=== PATIENT | female | born 1945 | race Caucasian/White ===

== ENCOUNTER 2021-01-30 09:57 | Inpatient (IN) | payer MEDICARE, BC, SELFPAY ==
[2021-01-30] VITALS (18 sets, daily range): BP systolic 95–144; BP diastolic 41–86; PULSE 53–70; RESP 14–27; TEMP 35.8–37.1; O2SAT 7–100; BMI 44.4
--- NOTE | ~2021-01-30 | XR_ITS ---
EXAMINATION: XR CHEST CLINICAL INFORMATION: Shortness of breath COMPARISON: None TECHNIQUE: Portable upright AP x2 views of the chest was obtained. FINDINGS: Patient is slightly rotated to the right. Face and chin overlie and partly obscured superior chest. There are low lung volumes. There is mild enlargement cardiopericardial silhouette with fullness of the central vasculature. Bibasilar effusions are present, greater on right with fluid tracking in the right minor fissure. There is passive atelectasis adjacent to the effusion. No definite superimposed lobar or segmental airspace consolidation. XR/XR chest 1V IMPRESSION: Low lung volumes. Mild pulmonary vascular congestion with bilateral effusions, greater on right. Bibasilar passive atelectasis adjacent to effusions.
--- NOTE | ~2021-01-30 | XR_ITS ---
EXAMINATION: XR CHEST CLINICAL INFORMATION: Status post intubation COMPARISON: 01/30/2021 TECHNIQUE: Frontal view of the chest was obtained. FINDINGS: An endotracheal tube is been placed which projects 1 cm above the haroon. A nasogastric tube is coiled in the stomach. There are bilateral pleural effusions, larger on the right with atelectasis in the lower lungs. Mild vascular congestion cannot be excluded. XR/XR chest 1V IMPRESSION: Bilateral effusions with basilar atelectasis and probable congestive heart failure. Status post endotracheal and patient with the endotracheal tube projected 1 cm above the haroon. A nasogastric tube has also been placed.
--- NOTE | 2021-01-30 10:11 | ECG_ITS ---
Test Reason : CHF Blood Pressure : / mmHG Vent. Rate : 052 BPM Atrial Rate : 052 BPM P-R Int : 144 ms QRS Dur : 086 ms QT Int : 434 ms P-R-T Axes : 024 023 021 degrees QTc Int : 403 ms Poor data quality, interpretation may be adversely affected Sinus bradycardia Possible Anterior infarct , age undetermined Abnormal ECG No previous ECGs available Referred By: Roverto Hood Electronically Signed By:BRIDGETT AGUIAR
--- NOTE | 2021-01-30 10:17 | ED_ITS ---
HPI - SOB/Dyspnea General Chief Complaint: Dyspnea Stated Complaint: AMS, LOW O2SAT 78%, ON CPAP Time Seen by Provider: 01/30/21 10:10 Source: EMS Mode of arrival: EMS Limitations: other (Respiratory distress ) History of Present Illness HPI Narrative: This is a 75 year old obese female with past medical history of CHF was brought in by EMS from home for shortness of breath. EMS states that per the son, she was tossing and turning all night and hallucinating talking about puppies having babies, which is not her baseline. He also noted she was having trouble breathing for the past day and her legs seemed to be more swollen than usual. According to what the son of this patient told EMS this patient is usuall y alert and oriented X3, and this is not her baseline. She is fully vaccinated, and per the son she has not been around any sick individuals lately. Per EMS the patient was able to answer a few questions including her name and adress upon arrival, but she quickly became lethargic and unable to answer any questions en route to the hospital patient was saturating 70% on 4 L at home. She uses 3L of oxygen via nasal canula at home. 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 MD elicited complaint: shortness of breath Pertinent past history: congestive heart failure Onset (ago): day(s) (1 day progressivly worsening ) Timing: progressively worsening Severity: severe Exacerbating factors: exertion Relieving factors: nothing Known history of: congestive heart failure Associated symptoms: wheezing and chest congestion Treatment prior to arrival: none Related Data Home oxygen amount: 4 liters Allergies Allergy/AdvReac Type Severity Reaction Status Date / Time Sulfa (Sulfonamide Allergy Unknown Verified 03/23/14 00:00 Antibiotics) Novacaine Allergy Unknown Uncoded 03/23/14 00:00 Review of Systems Constitutional: Constitutional: Reports fatigue, Reports lethargy and Reports weakness ENT: Reports system reviewed and no additional complaints, except as documented Cardiovascular: Cardiovascular: Reports dyspnea Respiratory: Respiratory: Reports chest congestion, Reports dyspnea and Reports wheezing Integumentary/Breasts: Skin/Breast: Reports swelling (bilateral lower extremities ) and Reports wounds Neurologic: Reports weakness and Reports other (lethargy ) Endocrine: Endocrine: Reports fatigue Allergic/Immunologic: Allergic/Immunologic: Reports wheezing [facility] Past Medical History Medical History (Updated 01/30/21 @ 12:44 by Roverto Hood MD) CHF (congestive heart failure) HTN (hypertension) Neuropathy Social History Social History Alcohol intake: never Patient Tobacco Use Status: Former Tobacco user Use of substances other than those prescribed or required for medical reasons: No Advance Directives: No Advance Directives Information Provided: No Physical Exam Vital Signs: Vital Signs: Last Vital Signs Temp 96.4 F L 01/30/21 10:11 Pulse 55 01/30/21 11:16 Resp 27 H 01/30/21 14:29 BP 143/63 H 01/30/21 11:16 Pulse Ox 91 L 01/30/21 11:16 Body Mass Index 44.4 Const: General: acute distress, ill appearing, lethargic and tired appearing Orientation/consciousness: lethargic Limitations: other limitations (respiratory distress ) HENMT: Head: Yes normal to inspection Chest: Chest palpation & inspection: normal inspection of the chest and normal palpation of entire chest wall Resp: Effort & Inspection: audible wheezes and respiratory distress Auscultation: crackles, wheezes and diminished lung sounds Cardio: Rate: regular rate Rhythm: regular rhythm GI: Inspection: Yes normal to inspection Palpation (GI): Soft to palpation Auscultation: normal bowel sounds Skin: Rashes: rashes noted (bilateral lower extremities bilateral 4+ pitting edema) Extrem: General: Yes edema (4+ to bilateral lower extremities with weeping ) MDM - SOB/Dyspnea MDM Narrative Medical decision making narrative: Patient morbidly obese with CHF on home oxygen came for increased shortness of breath desaturated to 70% on 4 L venous gas shows respiratory acidosis with metabolic alkalosis patient was on BiPAP will admit patient to ICU pt seen by Dr. farah Lab Data Attestation: I reviewed the patient's lab results. Result diagrams: 01/30/21 10:31 01/30/21 10:31 Labs: Lab Results 01/30/21 01/30/21 01/30/21 Range/Units 10:29 10:30 10:31 WBC 10.9 H (4.8-10.8) X10*3/uL RBC 3.73 L (4.20-5.50) X10*6/uL Hgb 9.8 L (12.0-16.0) g/dl Hct 35.3 L (37-47) % MCV 94.6 (80-98) fL MCH 26.3 L (27.0-33.0) pg MCHC 27.8 L (31.0-35.0) g/dl RDW 15.5 (11.0-16.0) % Plt Count 284 (160-400) X10*3/uL MPV 11.4 (9.4-12.3) fL Immature Gran % (Auto) 1.2 H (0.0-0.4) % Neut % (Auto) 82.8 H (45-73) % Lymph % (Auto) 10.2 L (20-40) % [place] % (Auto) 5.1 (2-11) % Eos % (Auto) 0.3 (0-4) % Baso % (Auto) 0.4 (0-2) % Lymph # (Auto) 1.1 L (1.2-4.9) X10*3/uL [place] # (Auto) 0.6 (0.1-1.2) X10*3/uL Eos # (Auto) 0.0 (0.0-0.4) X10*3/uL Baso # (Auto) 0.0 (0.0-0.2) X10*3/uL Abs Immat Gran (auto) 0.13 H (0.00-0.03) X10*3/uL Absolute Neuts (auto) 9.0 H (2.0-8.3) X10*3/uL Absolute Nucleated RBC 0.020 H (0.0-0.012) X10*3/uL Nucleated RBC % (auto) 0.2 (0.0-0.2) /100WBC PT (9.9-13.0) SEC INR (0.9-1.1) APTT (24.1-38.0) SEC VBG pH TNP VBG pCO2 TNP VBG pO2 TNP VBG HCO3 TNP VBG O2 Saturation TNP VBG Base Excess TNP Sodium (135-145) mmol/L Potassium (3.3-5.1) mmol/L Chloride (96-108) mmol/L Carbon Dioxide (22-29) mmol/L Anion Gap (12-20) BUN (9-16) mg/dL Creatinine (0.5-1.4) mg/dL Estim Creat Clear Calc Estimated GFR Random Glucose (60-115) mg/dL Lactic Acid (0.5-2.0) mmol/L Calcium (8.4-10.2) mg/dL Magnesium (1.6-2.6) mg/dL Total Bilirubin (0.0-1.0) mg/dL Direct Bilirubin (0.0-0.5) mg/dL AST (5-31) U/L ALT (0-31) U/L Alkaline Phosphatase (39-117) U/L Troponin I High Sens 15.2 (<3.5-17.0) ng/L B-Natriuretic Peptide 415 H (<100) pg/mL Total Protein (6.5-8.0) g/dL Albumin (3.5-5.0) g/dL Urine Color Urine Appearance Urine pH (5.0-8.0) Ur Specific [place] (1.005-1.025) Urine Protein (NEG-TRACE) MG/DL Urine Glucose (UA) (NEG) MG/DL Urine Ketones (NEG) MG/DL Urine Blood (NEG) Urine Nitrite (NEG) Ur Leukocyte Esterase (NEG) Urine RBC (0) /HPF Urine WBC (0-4) /HPF Ur Squamous Epith Cells /LPF Urine Bacteria /LPF Hyaline Casts /LPF COVID-19 (ABDIRAHMAN) (Negative) COVID-19 Clin Com 01/30/21 01/30/21 01/30/21 Range/Units 10:31 10:31 10:31 WBC (4.8-10.8) X10*3/uL RBC (4.20-5.50) X10*6/uL Hgb (12.0-16.0) g/dl Hct (37-47) % MCV (80-98) fL MCH (27.0-33.0) pg MCHC (31.0-35.0) g/dl RDW (11.0-16.0) % Plt Count (160-400) X10*3/uL MPV (9.4-12.3) fL Immature Gran % (Auto) (0.0-0.4) % Neut % (Auto) (45-73) % Lymph % (Auto) (20-40) % [place] % (Auto) (2-11) % Eos % (Auto) (0-4) % Baso % (Auto) (0-2) % Lymph # (Auto) (1.2-4.9) X10*3/uL [place] # (Auto) (0.1-1.2) X10*3/uL Eos # (Auto) (0.0-0.4) X10*3/uL Baso # (Auto) (0.0-0.2) X10*3/uL Abs Immat Gran (auto) (0.00-0.03) X10*3/uL Absolute Neuts (auto) (2.0-8.3) X10*3/uL Absolute Nucleated RBC (0.0-0.012) X10*3/uL Nucleated RBC % (auto) (0.0-0.2) /100WBC PT 11.1 (9.9-13.0) SEC INR 1.0 (0.9-1.1) APTT 31.0 (24.1-38.0) SEC VBG pH VBG pCO2 VBG pO2 VBG HCO3 VBG O2 Saturation VBG Base Excess Sodium 144 (135-145) mmol/L Potassium 5.1 (3.3-5.1) mmol/L Chloride 90 L (96-108) mmol/L Carbon Dioxide 47 H* (22-29) mmol/L Anion Gap 12 (12-20) BUN 18 H (9-16) mg/dL Creatinine 0.95 (0.5-1.4) mg/dL Estim Creat Clear Calc 57.0 Estimated GFR 58 Random Glucose 129 H (60-115) mg/dL Lactic Acid 0.6 (0.5-2.0) mmol/L Calcium 9.1 (8.4-10.2) mg/dL Magnesium 2.1 (1.6-2.6) mg/dL Total Bilirubin 0.4 (0.0-1.0) mg/dL Direct Bilirubin < 0.2 (0.0-0.5) mg/dL AST 16 (5-31) U/L ALT 11 (0-31) U/L Alkaline Phosphatase 116 (39-117) U/L Troponin I High Sens (<3.5-17.0) ng/L B-Natriuretic Peptide (<100) pg/mL Total Protein 7.1 (6.5-8.0) g/dL Albumin 3.9 (3.5-5.0) g/dL Urine Color Urine Appearance Urine pH (5.0-8.0) Ur Specific [place] (1.005-1.025) Urine Protein (NEG-TRACE) MG/DL Urine Glucose (UA) (NEG) MG/DL Urine Ketones (NEG) MG/DL Urine Blood (NEG) Urine Nitrite (NEG) Ur Leukocyte Esterase (NEG) Urine RBC (0) /HPF Urine WBC (0-4) /HPF Ur Squamous Epith Cells /LPF Urine Bacteria /LPF Hyaline Casts /LPF COVID-19 (ABDIRAHMAN) (Negative) COVID-19 Clin Com 01/30/21 01/30/21 01/30/21 Range/Units 10:31 10:38 11:14 WBC (4.8-10.8) X10*3/uL RBC (4.20-5.50) X10*6/uL Hgb (12.0-16.0) g/dl Hct (37-47) % MCV (80-98) fL MCH (27.0-33.0) pg MCHC (31.0-35.0) g/dl RDW (11.0-16.0) % Plt Count (160-400) X10*3/uL MPV (9.4-12.3) fL Immature Gran % (Auto) (0.0-0.4) % Neut % (Auto) (45-73) % Lymph % (Auto) (20-40) % [place] % (Auto) (2-11) % Eos % (Auto) (0-4) % Baso % (Auto) (0-2) % Lymph # (Auto) (1.2-4.9) X10*3/uL [place] # (Auto) (0.1-1.2) X10*3/uL Eos # (Auto) (0.0-0.4) X10*3/uL Baso # (Auto) (0.0-0.2) X10*3/uL Abs Immat Gran (auto) (0.00-0.03) X10*3/uL Absolute Neuts (auto) (2.0-8.3) X10*3/uL Absolute Nucleated RBC (0.0-0.012) X10*3/uL Nucleated RBC % (auto) (0.0-0.2) /100WBC PT (9.9-13.0) SEC INR (0.9-1.1) APTT (24.1-38.0) SEC VBG pH 7.29 L VBG pCO2 95 VBG pO2 42 VBG HCO3 46 H VBG O2 Saturation 59.0 VBG Base Excess 15.2 Sodium (135-145) mmol/L Potassium (3.3-5.1) mmol/L Chloride (96-108) mmol/L Carbon Dioxide (22-29) mmol/L Anion Gap (12-20) BUN (9-16) mg/dL Creatinine (0.5-1.4) mg/dL Estim Creat Clear Calc Estimated GFR Random Glucose (60-115) mg/dL Lactic Acid (0.5-2.0) mmol/L Calcium (8.4-10.2) mg/dL Magnesium (1.6-2.6) mg/dL Total Bilirubin (0.0-1.0) mg/dL Direct Bilirubin (0.0-0.5) mg/dL AST (5-31) U/L ALT (0-31) U/L Alkaline Phosphatase (39-117) U/L Troponin I High Sens (<3.5-17.0) ng/L B-Natriuretic Peptide (<100) pg/mL Total Protein (6.5-8.0) g/dL Albumin (3.5-5.0) g/dL Urine Color YELLOW Urine Appearance HAZY Urine pH 5.5 (5.0-8.0) Ur Specific [place] >= 1.030 H (1.005-1.025) Urine Protein 1+ H (NEG-TRACE) MG/DL Urine Glucose (UA) NEG (NEG) MG/DL Urine Ketones NEG (NEG) MG/DL Urine Blood NEG (NEG) Urine Nitrite NEG (NEG) Ur Leukocyte Esterase NEG (NEG) Urine RBC 0-2 (0) /HPF Urine WBC 0-2 (0-4) /HPF Ur Squamous Epith Cells 1+ /LPF Urine Bacteria TRACE /LPF Hyaline Casts 0-2 /LPF COVID-19 (ABDIRAHMAN) Negative (Negative) COVID-19 Clin Com See Note ECG Data Attestation: I personally reviewed and interpreted this ECG as follows: Interpretation: Sinus bradycardia with heart rate 52 beats per minute poor progression of R-waves no acute ST T wave changes no acute ischemia Discharge Plan Discharge Clinical Impression: Respiratory acidosis, Hypoxia Congestive heart failure Qualifiers: Heart failure type: combined systolic and diastolic Heart failure chronicity: acute on chronic Qualified Code(s): I50.43 - Acute on chronic combined systolic (congestive) and diastolic (congestive) heart failure Patient Disposition: Admitted As Inpatient
[2021-01-30 10:41] LABS: Venous Blood Gas Refer to POC result
[2021-01-30 10:41] LABS: MANUAL DIFF FLAG NO
[2021-01-30 10:43] LABS: VBG Base Excess 15.2 mmol/L; VBG HCO3 46 mmol/L (22-26); VBG pCO2 95 mmHg; VBG pH 7.29 (7.32-7.43); VBG pO2 42 mmHg
[2021-01-30 10:50] LABS: Lactic Acid 0.6 mmol/L (0.5-2.0)
[2021-01-30 10:51] LABS: Basophils Percent Auto 0.4 % (0-2); Eosinophils Percent Auto 0.3 % (0-4); Hematocrit 35.3 % (37-47); Hemoglobin 9.8 g/dl (12.0-16.0); Imm Gran Abs Auto 0.13 X10*3/uL (0.00-0.03); Imm Gran Pct Auto 1.2 % (0.0-0.4); Lymphocytes Absolute Auto 1.1 X10*3/uL (1.2-4.9); Lymphocytes Percent Auto 10.2 % (20-40); Mean Corpuscular HGB Conc 27.8 g/dl (31.0-35.0); Mean Corpuscular Hemoglobin 26.3 pg (27.0-33.0); Mean Corpuscular Volume 94.6 fL (80-98); Mean Platelet Volume 11.4 fL (9.4-12.3); Monocytes Absolute Auto 0.6 X10*3/uL (0.1-1.2); Monocytes Percent Auto 5.1 % (2-11); NRBC Pct Auto 0.2 /100WBC (0.0-0.2); Neutrophils Percent Auto 82.8 % (45-73); Platelet Count 284 X10*3/uL (160-400); Red Blood Count 3.73 X10*6/uL (4.20-5.50); Red Cell Distribution Width 15.5 % (11.0-16.0); White Blood Count 10.9 X10*3/uL (4.8-10.8)
[2021-01-30 10:57] LABS: Prothrombin Time 11.1 SEC (9.9-13.0)
[2021-01-30 11:10] LABS: B Type Natriuretic Peptide 415 pg/mL (<100); Troponin-I High Sensitivity 15.2 ng/L (<3.5-17.0)
[2021-01-30 11:13] LABS: Alanine Aminotransferase 11 U/L (0-31); Albumin Level 3.9 g/dL (3.5-5.0); Alkaline Phosphatase 116 U/L (39-117); Anion Gap 12 (12-20); Aspartate Amino Transferase 16 U/L (5-31); Bilirubin Direct < 0.2 mg/dL (0.0-0.5); Bilirubin Total 0.4 mg/dL (0.0-1.0); Blood Urea Nitrogen 18 mg/dL (9-16); Calcium 9.1 mg/dL (8.4-10.2); Carbon Dioxide 47 mmol/L (22-29); Chloride 90 mmol/L (96-108); Estimated Glomerular Filt Rate 58; Glucose Random 129 mg/dL (60-115); Magnesium 2.1 mg/dL (1.6-2.6); Potassium 5.1 mmol/L (3.3-5.1); Sodium 144 mmol/L (135-145); Total Protein 7.1 g/dL (6.5-8.0)
[2021-01-30 11:14] LABS: COVID-19 Test Negative (Negative); IDNOW Serial# 9DD0AD1C
[2021-01-30] MEDS: Furosemide 40 MG/4 ML VIAL IVPUSH (11:16)
[2021-01-30 11:26] LABS: Appearance Urine HAZY; Color Urine YELLOW; Glucose Urine UA NEG (NEG); Leukocyte Esterase Urine NEG (NEG); Nitrite Urine NEG (NEG); PH 5.5 (5.0-8.0); Specific Gravity - Urine >= 1.030 (1.005-1.025); UACC Culture Trigger NO; Urine Blood NEG (NEG); Urine Ketones NEG (NEG); Urine Protein 1+ MG/DL (NEG-TRACE)
[2021-01-30 11:41] LABS: RBC Urine 0-2 /HPF (0); WBC Urine 0-2 /HPF (0-4)
[2021-01-30 11:42] LABS: Bacteria Urine TRACE /LPF; Hyaline Casts Urine 0-2 /LPF; Squamous Epithelial Cell Urine 1+ /LPF
[2021-01-30] MEDS: Heparin Sodium,Porcine 5,000 UNIT/ML VIAL 5000 UNIT SUBCUT ×2 (13:12→21:28)
[2021-01-30] MEDS: acetaZOLAMIDE sodium 500 MG VIAL IVPUSH ×2 (13:43→21:28)
[2021-01-30 16:35] LABS: ABG Base Excess 31.8 mmol/L; ABG HCO3 64 mmol/L (22-26); ABG pH 7.33 (7.35-7.45); ABG pO2 96 mmHg (83-108)
[2021-01-30] MEDS: propofoL 200 MG/20 ML VIAL 100 MG IVPUSH (16:47)
--- NOTE | 2021-01-30 16:51 | PM.CCHP ---
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 On ER evaluation patient was noted to be in acute hypoxic and hypercapnic respiratory failure, likely secondary to underlying congestive heart failure and obesity hyperventilation syndrome. She was started on diuresis and BiPAP and admitted to intensive care unit. Patient's hypercapnia progressed despite BiPAP support in she required emergent intubation and ventilatory support. Review of Systems Review of Systems: Yes Unobtainable due to mental condition and Unobtainable due to mental status [facility] Past Medical History Medical History (Updated 01/31/21 @ 12:03 by Niranjan Gerber MD) CHF (congestive heart failure) HTN (hypertension) Neuropathy Social History Social History Household Members: Unknown / Unable to assess Housing: Apartment Unable to assess alcohol history related to: Unable to respond and Unknown Alcohol intake: never Patient Tobacco Use Status: Former Tobacco user service: No Current occupational status: retired [employer] Allergies Allergy/AdvReac Type Severity Reaction Status Date / Time Sulfa (Sulfonamide Allergy Unknown Verified 03/23/14 00:00 Antibiotics) Novacaine Allergy Unknown Uncoded 03/23/14 00:00 Active Medications: Current Medications Generic Name Dose Route Start Last Admin Trade Name Freq PRN Reason Stop Dose Admin Acetazolamide 500 mg 01/30/21 12:40 01/30/21 13:43 Acetazolamide Sodium 500 Mg Vial IVPUSH 500 mg BID JULIETH Administration Heparin Sodium (Porcine) 5,000 unit 01/30/21 12:45 01/30/21 13:12 Heparin Sodium,Porcine 5,000 Unit/Ml Vial SUBCUT 5,000 unit Q8H JULIETH Administration Ondansetron HCl 4 mg 01/30/21 12:38 Ondansetron Hcl 4 Mg/2 Ml Vial IVPUSH Q8H PRN Nausea Physical Exam Vital Signs: Vital Signs: Last Vital Signs Temp 97.2 F 01/30/21 16:00 Pulse 60 01/30/21 16:00 Resp 26 H 01/30/21 16:25 BP 135/43 L 01/30/21 16:00 Pulse Ox 92 01/30/21 16:00 Body Mass Index 44.4 Const: General: no acute distress and other (Sedated on the vent) Nutritional Appearance: obese Eyes: Sclerae: sclerae normal EOM: EOMs intact bilaterally Neck: Neck: Yes no lymphadenopathy, Yes trachea midline and Yes supple Resp: Effort & Inspection: normal respiratory effort and no respiratory distress Auscultation: clear to auscultation bilaterally Cardio: Rate: regular rate Rhythm: regular rhythm Heart sounds: no gallops, no murmurs and no rubs GI: Palpation (GI): Soft to palpation and Other GI palpation findings present ( Nontender) Auscultation: normal bowel sounds Extrem: General: No clubbing, No cyanosis and Yes pedal edema (3+ bilateral) Results Labs CBC and Chem 7: 01/31/21 05:46 01/31/21 05:46 Labs: Laboratory Results - last 24 hr 01/30/21 01/30/21 01/30/21 10:29 10:30 10:31 MCV 94.6 MCH 26.3 L MCHC 27.8 L RDW 15.5 Plt Count 284 MPV 11.4 Immature Gran % (Auto) 1.2 H Neut % (Auto) 82.8 H Lymph % (Auto) 10.2 L [place] % (Auto) 5.1 Eos % (Auto) 0.3 Baso % (Auto) 0.4 Lymph # (Auto) 1.1 L [place] # (Auto) 0.6 Eos # (Auto) 0.0 Baso # (Auto) 0.0 Abs Immat Gran (auto) 0.13 H Absolute Neuts (auto) 9.0 H Absolute Nucleated RBC 0.020 H Nucleated RBC % (auto) 0.2 PT INR APTT O2 Saturation ABG pH at Pt Temp ABG pCO2 at Pt Temp ABG pO2 at Pt Temp ABG HCO3 ABG Base Excess (Actual) VBG pH TNP VBG pCO2 TNP VBG pO2 TNP VBG HCO3 TNP VBG O2 Saturation TNP VBG Base Excess TNP Anion Gap Estim Creat Clear Calc Estimated GFR Random Glucose Lactic Acid Calcium Magnesium Total Bilirubin Direct Bilirubin AST ALT Alkaline Phosphatase Troponin I High Sens 15.2 B-Natriuretic Peptide 415 H Total Protein Albumin Urine Color Urine Appearance Urine pH Ur Specific [place] Urine Protein Urine Glucose (UA) Urine Ketones Urine Blood Urine Nitrite Ur Leukocyte Esterase Urine RBC Urine WBC Ur Squamous Epith Cells Urine Bacteria Hyaline Casts COVID-19 (ABDIRAHMAN) COVID-19 Clin Com 01/30/21 01/30/21 01/30/21 10:31 10:31 10:31 MCV MCH MCHC RDW Plt Count MPV Immature Gran % (Auto) Neut % (Auto) Lymph % (Auto) [place] % (Auto) Eos % (Auto) Baso % (Auto) Lymph # (Auto) [place] # (Auto) Eos # (Auto) Baso # (Auto) Abs Immat Gran (auto) Absolute Neuts (auto) Absolute Nucleated RBC Nucleated RBC % (auto) PT 11.1 INR 1.0 APTT 31.0 O2 Saturation ABG pH at Pt Temp ABG pCO2 at Pt Temp ABG pO2 at Pt Temp ABG HCO3 ABG Base Excess (Actual) VBG pH VBG pCO2 VBG pO2 VBG HCO3 VBG O2 Saturation VBG Base Excess Anion Gap 12 Estim Creat Clear Calc 57.0 Estimated GFR 58 Random Glucose 129 H Lactic Acid 0.6 Calcium 9.1 Magnesium 2.1 Total Bilirubin 0.4 Direct Bilirubin < 0.2 AST 16 ALT 11 Alkaline Phosphatase 116 Troponin I High Sens B-Natriuretic Peptide Total Protein 7.1 Albumin 3.9 Urine Color Urine Appearance Urine pH Ur Specific [place] Urine Protein Urine Glucose (UA) Urine Ketones Urine Blood Urine Nitrite Ur Leukocyte Esterase Urine RBC Urine WBC Ur Squamous Epith Cells Urine Bacteria Hyaline Casts COVID-19 (ABDIRAHMAN) COVID-19 Clin Com 01/30/21 01/30/21 01/30/21 10:31 10:38 11:14 MCV MCH MCHC RDW Plt Count MPV Immature Gran % (Auto) Neut % (Auto) Lymph % (Auto) [place] % (Auto) Eos % (Auto) Baso % (Auto) Lymph # (Auto) [place] # (Auto) Eos # (Auto) Baso # (Auto) Abs Immat Gran (auto) Absolute Neuts (auto) Absolute Nucleated RBC Nucleated RBC % (auto) PT INR APTT O2 Saturation ABG pH at Pt Temp ABG pCO2 at Pt Temp ABG pO2 at Pt Temp ABG HCO3 ABG Base Excess (Actual) VBG pH 7.29 L VBG pCO2 95 VBG pO2 42 VBG HCO3 46 H VBG O2 Saturation 59.0 VBG Base Excess 15.2 Anion Gap Estim Creat Clear Calc Estimated GFR Random Glucose Lactic Acid Calcium Magnesium Total Bilirubin Direct Bilirubin AST ALT Alkaline Phosphatase Troponin I High Sens B-Natriuretic Peptide Total Protein Albumin Urine Color YELLOW Urine Appearance HAZY Urine pH 5.5 Ur Specific [place] >= 1.030 H Urine Protein 1+ H Urine Glucose (UA) NEG Urine Ketones NEG Urine Blood NEG Urine Nitrite NEG Ur Leukocyte Esterase NEG Urine RBC 0-2 Urine WBC 0-2 Ur Squamous Epith Cells 1+ Urine Bacteria TRACE Hyaline Casts 0-2 COVID-19 (ABDIRAHMAN) Negative COVID-19 Clin Com See Note 01/30/21 16:29 MCV MCH MCHC RDW Plt Count MPV Immature Gran % (Auto) Neut % (Auto) Lymph % (Auto) [place] % (Auto) Eos % (Auto) Baso % (Auto) Lymph # (Auto) [place] # (Auto) Eos # (Auto) Baso # (Auto) Abs Immat Gran (auto) Absolute Neuts (auto) Absolute Nucleated RBC Nucleated RBC % (auto) PT INR APTT O2 Saturation 98.0 ABG pH at Pt Temp 7.33 L ABG pCO2 at Pt Temp 121 H* ABG pO2 at Pt Temp 96 ABG HCO3 64 H ABG Base Excess (Actual) 31.8 VBG pH VBG pCO2 VBG pO2 VBG HCO3 VBG O2 Saturation VBG Base Excess Anion Gap Estim Creat Clear Calc Estimated GFR Random Glucose Lactic Acid Calcium Magnesium Total Bilirubin Direct Bilirubin AST ALT Alkaline Phosphatase Troponin I High Sens B-Natriuretic Peptide Total Protein Albumin Urine Color Urine Appearance Urine pH Ur Specific [place] Urine Protein Urine Glucose (UA) Urine Ketones Urine Blood Urine Nitrite Ur Leukocyte Esterase Urine RBC Urine WBC Ur Squamous Epith Cells Urine Bacteria Hyaline Casts COVID-19 (ABDIRAHMAN) COVID-19 Clin Com Imaging Radiologist's Impressions: Impressions Chest X-Ray 01/30/21 10:11 IMPRESSION: Low lung volumes. Mild pulmonary vascular congestion with bilateral effusions, greater on right. Bibasilar passive atelectasis adjacent to effusions. Assessment and Plan (1) Acute on chronic respiratory failure with hypoxia and hypercapnia: Status: Acute Assessment: 75-year-old lady with underlying morbid obesity and bilateral diaphragmatic paralysis admitted with acute on chronic hypoxic and hypercapnic respiratory failure requiring ventilatory support. Plan: Neuro: Initial visual hallucination likely secondary to CO2 narcosis. Cardiac: Likely exacerbation of underlying chronic congestive heart failure. 2D echocardiogram is pending. Continue with diuresis. Pulmonary: Acute on chronic hypoxic and hypercapnic respiratory failure, likely secondary to exacerbation of underlying chronic congestive heart failure. Now requiring ventilatory support. Underlying history of bilateral diaphragmatic paralysis and supplemental oxygen dependency after cervical surgery. Likely underlying undiagnosed obesity hyperventilation syndrome. Continue to titrate of ventilatory support as tolerated. Renal: No acute issues. Endo: No acute issues. GI: No acute issues. ID: No acute issues Heme/Onc: No acute issues. Psych: No acute issues. Miscellaneous: No acute issues. Prophylaxis: Heparin, ppi Diet: Tube feeds Critical care time spent: 60 minutes excluding separately billable procedures (2) Obesity hypoventilation syndrome: Status: Acute (3) Congestive heart failure: Qualifiers: Heart failure chronicity: acute on chronic Heart failure type: combined systolic and diastolic Qualified Code(s): I50.43 - Acute on chronic combined systolic (congestive) and diastolic (congestive) heart failure Status: Acute Assessment: Plan: Neuro: No acute issues. Cardiac: No acute issues. Pulmonary: No acute issues. Renal: No acute issues. Endo: No acute issues. GI: No acute issues. ID: No acute issues Heme/Onc: No acute issues. Psych: No acute issues. Miscellaneous: No acute issues. Prophylaxis: Diet: Critical care time spent:
--- NOTE | 2021-01-30 16:51 | W.PM.CCHP ---
Procedures Date of Service Date of Service: 01/30/21 Intubation Intubation Comments: Patient emergently intubated for worsening hypercapnic and hypoxic respiratory failure refractory to BiPAP support with 7.5 cuffed ET tube under glide scope guidance with no immediate complications. X-ray for ET tube position is pending. Consent for Procedure: Emergent-no informed consent obtained Sedative: propofol Mg given: 100 ET tube size: 7.5 Tube placement confirmation: visualized tube passing through cords, equal breath sounds bilaterally and confirmation by capnometry Patient tolerated procedure: well
[2021-01-30] MEDS: propofoL 1,000 MG/100 ML VIAL 18.57 MG IVCONT ×2 (17:00→22:45)
[2021-01-30] MEDS: fentaNYL citrate/NS 1,000 MCG/100 ML PLAST..BAG 7.5 MCG IVCONT (17:12)
[2021-01-30] MEDS: Furosemide 200 MG in 0.9 % Sodium Chloride 80 ML IVCONT (17:22)
[2021-01-30 17:28] LABS: ABG Base Excess 26.1 mmol/L; ABG HCO3 56 mmol/L (22-26); ABG pCO2 96 mmHg (32-45); ABG pCO2 TC 93 mmHg (32-45); ABG pH 7.37 (7.35-7.45); ABG pH TC 7.38 (7.35-7.45); ABG pO2 81 mmHg (83-108); ABG pO2 TC 77 (83-108)
[2021-01-30 19:32] LABS: ABG Refer to POC result
[2021-01-30 19:39] LABS: ABG Refer to POC result
[2021-01-30 19:42] LABS: ABG pCO2 121 mmHg (32-45)
[2021-01-30] MEDS: propofoL 1,000 MG/100 ML VIAL 30.94 MG IVCONT (19:43)
[2021-01-30 20:12] LABS: Anion Gap 14 (12-20); Blood Urea Nitrogen 18 mg/dL (9-16); Carbon Dioxide 45 mmol/L (22-29); Chloride 91 mmol/L (96-108); Creatinine Clr Calc Pharmacy 61.5; Estimated Glomerular Filt Rate > 60; Glucose Random 110 mg/dL (60-115); Potassium 4.9 mmol/L (3.3-5.1); Sodium 145 mmol/L (135-145)
[2021-01-30] MEDS: Chlorhexidine Gluc Oral Rinse 15 ML MOUTHWASH BUCCAL (21:28)
[2021-01-30] MEDS: fentaNYL citrate/NS 1,000 MCG/100 ML PLAST..BAG 17.5 MCG IVCONT (21:57)
[2021-01-31] VITALS (35 sets, daily range): BP systolic 89–108; BP diastolic 31–80; PULSE 51–88; RESP 14–43; TEMP 35.3–36.8; O2SAT 88–99; BMI 47.0
[2021-01-31] MEDS: propofoL 1,000 MG/100 ML VIAL 24.76 MG IVCONT ×2 (02:37→05:29)
[2021-01-31] MEDS: fentaNYL citrate/NS 1,000 MCG/100 ML PLAST..BAG 15 MCG IVCONT ×3 (02:37→23:55)
[2021-01-31] MEDS: Heparin Sodium,Porcine 5,000 UNIT/ML VIAL 5000 UNIT SUBCUT ×3 (05:27→19:54)
[2021-01-31 05:55] LABS: Venous Blood Gas Refer to POC result
[2021-01-31 05:56] LABS: VBG Base Excess 29.9 mmol/L; VBG HCO3 53 mmol/L (22-26); VBG pCO2 48 mmHg; VBG pH 7.65 (7.32-7.43); VBG pO2 137 mmHg
[2021-01-31 06:01] LABS: MANUAL DIFF FLAG NO
[2021-01-31 06:04] LABS: Basophils Percent Auto 0.2 % (0-2); Eosinophils Absolute Auto 0.1 X10*3/uL (0.0-0.4); Eosinophils Percent Auto 1.5 % (0-4); Hematocrit 29.4 % (37-47); Hemoglobin 8.4 g/dl (12.0-16.0); Imm Gran Abs Auto 0.06 X10*3/uL (0.00-0.03); Imm Gran Pct Auto 0.7 % (0.0-0.4); Lymphocytes Percent Auto 12.4 % (20-40); Mean Corpuscular HGB Conc 28.6 g/dl (31.0-35.0); Mean Corpuscular Hemoglobin 25.8 pg (27.0-33.0); Mean Corpuscular Volume 90.2 fL (80-98); Mean Platelet Volume 11.7 fL (9.4-12.3); Monocytes Absolute Auto 0.7 X10*3/uL (0.1-1.2); NRBC Pct Auto 0.4 /100WBC (0.0-0.2); Neutrophils Absolute Auto 6.2 X10*3/uL (2.0-8.3); Neutrophils Percent Auto 76.2 % (45-73); Platelet Count 219 X10*3/uL (160-400); Red Blood Count 3.26 X10*6/uL (4.20-5.50); Red Cell Distribution Width 15.8 % (11.0-16.0); White Blood Count 8.1 X10*3/uL (4.8-10.8)
[2021-01-31 06:28] LABS: Albumin Level 2.9 g/dL (3.5-5.0); Anion Gap 14 (12-20); Blood Urea Nitrogen 19 mg/dL (9-16); Calcium 8.5 mg/dL (8.4-10.2); Carbon Dioxide 39 mmol/L (22-29); Chloride 93 mmol/L (96-108); Creatinine Clr Calc Pharmacy 67.6; Estimated Glomerular Filt Rate > 60; Glucose Random 76 mg/dL (60-115); Phosphorus 2.6 mg/dL (2.7-4.5); Potassium 3.9 mmol/L (3.3-5.1); Sodium 142 mmol/L (135-145)
--- NOTE | 2021-01-31 06:41 | PC.NURSE ---
CARE ASSUMED 23:15...REMAINS TUBED/VENTED....VCV/AC MODE...FENTANYL AND PROPOFOL DRIPS TITRATED PER MAR FOR VENT SYNCHRONY...LASIX DRIP 5 MG/HR...DIURESED >100 CC/HR OVERNIGHT...BP SOFT...SBP 90'S...MAP 50'S-60'S...AM VBG= pH 7.65 PCO2 47.9 HCO3 53 ...VBG/BP REVIEWED WITH/BY ICU ORDNANCE ARTIFICER...LASIX DRIP HELD 6AM...PREVIOUSLY ORDERED DIAMOX BY ...LOWER LEGS REMAINS EDEMATOUS AND REDDENED
--- NOTE | 2021-01-31 07:07 | MHC.CDI.CONC ---
CDI Concurrent Query Documentation Clarification: PHYSICIAN'S DOCUMENTATION REQUEST Date of Query: 01/31/21 0708 Patient Name: Pastora Calderon Admit Date: 01/30/21 Dear Doctor, A review of the medical record indicates additional documentation may be needed. Please review below and update the documentation accordingly. Encephalopathy, POA, Resolved, Treating, Rule out Risk Factors/Clinical Indicators/Treatments Ed: Altered mental status, hallucinating about puppies, family said not her baseline, usually alert and oriented x3. Based on the above, please further specify, in the Progress Notes, the known or suspected type of the documented encephalopathy: Metabolic Toxic Toxic/ metabolic Unable to determine/Other Use of terms such as suspected, likely, concern for, or probable (associated with a specific diagnosis that is being evaluated, monitored, or treated as if it exists) are acceptable and can be coded in the inpatient setting, when documented at the time of discharge. Thank you, Letitia Mullins [facility], CDIS Extension: [phone] Please use your independent medical judgment in providing your response. THIS QUERY IS PART OF THE PERMANENT MEDICAL RECORD Provider Response: Other (CO2 narcosis, metabolic encephalopathy) Other Diagnosis: CO2 narcosis, metabolic encephalopathy
--- NOTE | 2021-01-31 07:17 | P.CDIC_ITS ---
CDI Concurrent Query Documentation Clarification: PHYSICIAN'S DOCUMENTATION REQUEST Date of Query: 01/31/21 0718 Patient Name: Pastora Calderon Admit Date: 01/30/21 Dear Doctor, A review of the medical record indicates additional documentation may be needed. Please review below and update the documentation accordingly. Clinical Indicators: Documentation on progress note 01/30 included the diagnosis of respiratory hypoxic and hypercapnia failure. The patient's respiratory clinical indicators were the following: Risk Factors/Clinical Indicators/Treatments Patient uses 3 liters oxygen at home via nc-arrived low 2 sat 78% placed on 4 liters oxygen. ICU: worsening hypercapnia and hypoxic respiratory failure, BIPAP support w 7.5 cuffed ET tube. Recognized standard criteria for respiratory failure includes: (Source: [facility] Hospitalist Mar 2013) ABGs (1 or more) Symptoms: ? PO2 <60 or RA SpO2 <91% dyspnea, SOB, respiratory distress ? PcO2 >50 and pH <7.35 wheezing, chest congestion. ? pO2 decrease or pcO2 increase by 10 mm/Hg from baseline if known Please clarify in the Progress Notes: Acute hypoxic and hypercapnia respiratory failure * Acute on chronic hypoxic and hypercapnia respiratory failure * Other (please specify) * Unable to determine Use of terms such as suspected, likely, concern for, or probable (associated with a specific diagnosis that is being evaluated, monitored, or treated as if it exists) are acceptable and can be coded in the inpatient setting, when documented at the time of discharge. Thank you, Letitia Mullins [facility], CDIS Extension: [phone] Please use your independent medical judgment in providing your response. THIS QUERY IS PART OF THE PERMANENT MEDICAL RECORD Provider Response: Other (Acute on chronic hypoxic and hypercapnic respiratory failure) Other Diagnosis: Acute on chronic hypoxic and hypercapnic respiratory failure
--- NOTE | 2021-01-31 07:30 | CA_ITS ---
Transthoracic Echocardiogram Patient (Last, First, Middle): Pastora Calderon C Gender: Female Date of : 1945 Age: 75 Procedure Date: 01/31/2021 Procedure Type: Transthoracic Echocardiogram Location: ICU Height: 152.4 cm Weight: 108.86 kg BSA: 2.02 m2 Heart Rate: bpm BP: 93 / 46 mmHg Marketing Traffic Coordinator: Referring MD: Niranjan Gerber MD Symptoms: Dyspnea Study Quality: Fair ECG Rhythm: Sinus Conclusions: - Normal left ventricular size and systolic function. - E/E prime ratio is >15, consistent with elevated filling pressures. - Normal right ventricular cavity size and systolic function. Findings Procedure Information Contrast agent, definity, is being given per protocol without apparent complications. Left Ventricle Normal left ventricular size and systolic function. There is severely increased left ventricular wall thickness. The visually estimated ejection fraction is between 65-70%. There is no evidence of regional wall motion abnormalities. Abnormal diastolic function is noted. Spectral Doppler is indicative of a pseudonormal filling pattern. E/E prime ratio is >15, consistent with elevated filling pressures. Right Ventricle Normal right ventricular cavity size and systolic function. Atria The left atrium is normal in size. Aortic Valve The aortic valve structure and function is likely normal. There is no aortic valve stenosis. There is no aortic valve regurgitation. Mitral Valve Normal mitral valve structure and function. There is no mitral valve regurgitation. There is no mitral valve stenosis. Pulmonic Valve Normal pulmonic valve structure and function. There is trace pulmonic valve regurgitation. Tricuspid Valve Normal tricuspid valve structure and function. There is trace tricuspid valve regurgitation. Tricuspid regurgitation envelope is inadequate for calculation of right ventricular systolic pressure. Normal right atrial pressure. Great Vessels All visible segments of the aorta are normal in size. The visualized portions of the pulmonary artery and branches are normal. Venous The inferior vena cava is normal in size and collapses greater than 50% with inspiration. Pericardium/Pleural There is no evidence of pericardial effusion. Prior Study Comparison No prior study available for comparison. Measurements 2D Linear Measurements IVSd: 1.46 0.6-0.9/0.6-1.0 cm LVIDd: 4.03 3.9-5.3/4.2-5.9 cm LVIDd Index: 2.00 2.4-3.2/2.2-3.1 cm/m2 LVIDs: 2.24 2.0-3.6 cm LVPWd: 1.36 0.7-1.1 cm Ao Root: 2.80 2.1-3.5 cm LA Diam: 3.20 2.7-3.8/3.0-4.0 cm LAIDs Index: 1.58 1.5-2.3 cm/m2 LV Mass: 266.21 67-162/88-224 g LV Mass Index: 131.79 43-95/49-115 g/m2 LVOT Diam: 2.00 3.0+(-)1.3 cm Mitral Valve MV Pk E: 1.14 MV PK A: 0.90 MV Decel Time: 284.00 E/A: 1.30 E'Lateral: 6.64 E'Medial: 4.57 E/E' Med: 24.90 E/E' Lat: 17.20 PHT: 83.00 MVA PHT: 2.65 Decel [place]: 4.00 Aortic Valve AoV Pk Sammy: 1.68 AoV Mn Sammy: 0.91 AoV VTI: 0.39 AoV Pk Grad: 11.00 Aov Mn Grad: 4.00 MAR Cont.VTI: 2.29 LVOT LVOT Pk Sammy: 1.13 LVOT Mn Sammy: 0.73 LVOT VTI: 0.29 LVOT Pk Grad: 5.00 LVOT Mn Grad: 3.00 LVOT Diam: 2.00 LVOT Area: 3.14 Diastolic Function MV Pk E: 1.14 MV Pk A: 0.90 E/A: 1.30 E'Medial: 4.57 E/E' Med: 24.90 E' Laterial: 6.64 E/E' Lat: 17.20 Tricuspid Valve TR Pk Sammy: 2.48 TR Pk Grad: 25.00 Great Vessels Aorta Ao Root-2D: 2.80 2.0-3.7 cm Ao Asc: 3.60 2.1-3.4 cm Pulmonary Valve PV Pk Sammy: 1.05 Peak PV Grad: 4.00 Updated in Other Vendor System with Status of Final Sahil Junior MD electronically signed on 01/31/2021 9:22:37 PM with status of Final
--- NOTE | 2021-01-31 08:50 | PC.NURSE ---
late entry; pt intuabted on 01/30/21 at about 1700. 100mcg ivp propofol given, propofol gtt started. pt tolerated well.
[2021-01-31 08:56] LABS: ABG Base Excess 33.3 mmol/L; ABG HCO3 59 mmol/L (22-26); ABG pCO2 59 mmHg (32-45); ABG pCO2 TC 57 mmHg (32-45); ABG pH TC 7.62 (7.35-7.45); ABG pO2 64 mmHg (83-108); ABG pO2 TC 60 (83-108)
[2021-01-31] MEDS: Albumin Human 25 % 100 ML IV ×3 (09:56→19:53)
[2021-01-31] MEDS: Chlorhexidine Gluc Oral Rinse 15 ML MOUTHWASH BUCCAL ×3 (09:57→19:54)
[2021-01-31] MEDS: acetaZOLAMIDE sodium 500 MG VIAL IVPUSH ×2 (09:57→19:53)
[2021-01-31] MEDS: propofoL 1,000 MG/100 ML VIAL 18.57 MG IVCONT ×2 (10:00→19:54)
[2021-01-31] MEDS: Nystatin Powder 15 GM BOTTLE 1 APPL TOPICAL ×2 (10:01→19:55)
--- NOTE | 2021-01-31 10:07 | MHC.CM.PN ---
Pt is intubated in ICU and unable to participate in CM assessment: Information obtained from EMR and from phone conversation with pt's spouse, Sai. Per Sai, pt resides with him and has 2x weekly [facility] services and [employer] for O2 needs. She is fairly independent with care needs, has a walker but is minimally mobile d/t SOB and poor cardiac endurance and obesity. Sai and pt's granddtr assist with transportation needs. Pt does not have a HCP per Sai and was COVID vaccinated last Spring. Per rounds, pt is very compromised and may require more O2 support at home. CM to follow for finalization of d/c plans including completing a HCP with pt when she is A&O. She will need a PT eval and possible respiratory assessment.
[2021-01-31] MEDS: Potassium Phosphate 30 MMOL in 0.9 % Sodium Chloride 500 ML 85 MMOL IV (10:08)
--- NOTE | 2021-01-31 10:10 | MHC.CLN ---
RE: CONSULT PT IS INTUBATED AND SEDATED PT WITH INCREASED NUTRITION NEEDS R/T PRESSURE INJURIES IF TF NEEDED; RECOMMEND PROMOTE AT MAX GOAL RATE 35ML/HR TO PROVIDE 840KCALS (1330KCALS WITH SEDATION; 29.5KCALS/KG), 52.5G PROTEIN (1.2G/KG), 705CC FREE WATER FROM FORMULA START TF AT 20ML/HR AND INCREASE BY 10ML Q 4 HRS UNTIL MAX GAOL IS ACHIEVED MONITOR TOLERANCE, RESIDUALS AND LYTES SEE ALSO CLINICAL NUTRITION ASSESSMENT
[2021-01-31 11:09] LABS: ABG Refer to POC result
--- NOTE | 2021-01-31 11:13 | P.CDIC_ITS ---
CDI Concurrent Query Documentation Clarification: PHYSICIAN'S DOCUMENTATION REQUEST Date of Query: 01/31/21 1114 Patient Name: Pastora Calderon Admit Date: 01/30/21 Dear Doctor, A review of the medical record indicates additional documentation may be needed. Please review below and update the documentation accordingly. Body mass index Risk Factors/Clinical Indicators/Treatments BMI 44.0 Nutrition noted patient to be morbidly obese. Intubated and on vent. If possible, please provide an associated diagnosis related to the abnormal BMI, such as: For a BMI >= 40: * Overweight * Obesity * Due to excess calories * Drug induced * Due to other cause * Severe or Morbid Obesity Use of terms such as suspected, likely, concern for, or probable (associated with a specific diagnosis that is being evaluated, monitored, or treated as if it exists) are acceptable and can be coded in the inpatient setting, when documented at the time of discharge. Thank you, Letitia Mullins [facility], CDIS Extension: [phone] Please use your independent medical judgment in providing your response. THIS QUERY IS PART OF THE PERMANENT MEDICAL RECORD Provider Response: Morbid Obesity
--- NOTE | 2021-01-31 12:08 | P.PNCC_ITS ---
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 On ER evaluation patient was noted to be in acute hypoxic and hypercapnic respiratory failure, likely secondary to underlying congestive heart failure and obesity hyperventilation syndrome. She was started on diuresis and BiPAP and admitted to intensive care unit. Patient's hypercapnia progressed despite BiPAP support in she required emergent intubation and ventilatory support. No events overnight. Critical Care Time (minutes): 45 Physical Exam Vital Signs: Vital Signs: Last Vital Signs Temp 95.5 F L 01/31/21 12:00 Pulse 88 01/31/21 12:00 Resp 14 01/31/21 12:00 BP 107/53 L 01/31/21 12:00 Pulse Ox 96 01/31/21 12:00 Body Mass Index 47.0 Const: General: no acute distress and other (Sedated on the vent, arousable with sedation vacation) Nutritional Appearance: obese Eyes: Sclerae: sclerae normal EOM: EOMs intact bilaterally Neck: Neck: Yes no lymphadenopathy, Yes trachea midline and Yes supple Resp: Effort & Inspection: normal respiratory effort and no respiratory distress Auscultation: clear to auscultation bilaterally Cardio: Rate: regular rate Rhythm: regular rhythm Heart sounds: no gallops, no murmurs and no rubs GI: Palpation (GI): Soft to palpation and Other GI palpation findings present ( Nontender) Auscultation: normal bowel sounds Extrem: General: No clubbing, No cyanosis and Yes pedal edema (3+ bilateral) Objective Data Labs CBC & Chem 7: 01/31/21 05:46 01/31/21 05:46 Labs: Laboratory Results - last 24 hr 01/30/21 01/30/21 01/30/21 16:18 16:18 17:22 WBC RBC Hgb Hct MCV MCH MCHC RDW Plt Count MPV Immature Gran % (Auto) Neut % (Auto) Lymph % (Auto) [place] % (Auto) Eos % (Auto) Baso % (Auto) Lymph # (Auto) [place] # (Auto) Eos # (Auto) Baso # (Auto) Abs Immat Gran (auto) Absolute Neuts (auto) Absolute Nucleated RBC Nucleated RBC % (auto) O2 Saturation 98.0 Cancelled 96.0 ABG pH at Pt Temp 7.33 L Cancelled 7.37 ABG pH (Temp Correct) Cancelled 7.38 ABG pCO2 at Pt Temp 121 H* Cancelled 96 H* ABG pCO2 (Temp Corrct Cancelled 93 H* ABG pO2 at Pt Temp 96 Cancelled 81 L ABG pO2 (Temp Correct Cancelled 77 L ABG HCO3 64 H Cancelled 56 H ABG Base Excess (Actual) 31.8 Cancelled 26.1 VBG pH VBG pCO2 VBG pO2 VBG HCO3 VBG O2 Saturation VBG Base Excess Sodium Potassium Chloride Carbon Dioxide Anion Gap BUN Creatinine Estim Creat Clear Calc Estimated GFR Random Glucose Calcium Phosphorus Magnesium Albumin 01/30/21 01/31/21 01/31/21 19:05 05:46 05:46 WBC 8.1 RBC 3.26 L Hgb 8.4 L Hct 29.4 L MCV 90.2 MCH 25.8 L MCHC 28.6 L RDW 15.8 Plt Count 219 MPV 11.7 Immature Gran % (Auto) 0.7 H Neut % (Auto) 76.2 H Lymph % (Auto) 12.4 L [place] % (Auto) 9.0 Eos % (Auto) 1.5 Baso % (Auto) 0.2 Lymph # (Auto) 1.0 L [place] # (Auto) 0.7 Eos # (Auto) 0.1 Baso # (Auto) 0.0 Abs Immat Gran (auto) 0.06 H Absolute Neuts (auto) 6.2 Absolute Nucleated RBC 0.030 H Nucleated RBC % (auto) 0.4 H O2 Saturation ABG pH at Pt Temp ABG pH (Temp Correct) ABG pCO2 at Pt Temp ABG pCO2 (Temp Corrct ABG pO2 at Pt Temp ABG pO2 (Temp Correct ABG HCO3 ABG Base Excess (Actual) VBG pH VBG pCO2 VBG pO2 VBG HCO3 VBG O2 Saturation VBG Base Excess Sodium 145 142 Potassium 4.9 3.9 D Chloride 91 L 93 L Carbon Dioxide 45 H* 39 H Anion Gap 14 14 BUN 18 H 19 H Creatinine 0.88 0.83 Estim Creat Clear Calc 61.5 67.6 Estimated GFR > 60 > 60 Random Glucose 110 76 Calcium 9.0 8.5 Phosphorus 2.6 L Magnesium 2.0 Albumin 2.9 L D 01/31/21 01/31/21 05:49 08:50 WBC RBC Hgb Hct MCV MCH MCHC RDW Plt Count MPV Immature Gran % (Auto) Neut % (Auto) Lymph % (Auto) [place] % (Auto) Eos % (Auto) Baso % (Auto) Lymph # (Auto) [place] # (Auto) Eos # (Auto) Baso # (Auto) Abs Immat Gran (auto) Absolute Neuts (auto) Absolute Nucleated RBC Nucleated RBC % (auto) O2 Saturation 92.0 ABG pH at Pt Temp 7.60 H* ABG pH (Temp Correct) 7.62 H* ABG pCO2 at Pt Temp 59 H ABG pCO2 (Temp Corrct 57 H ABG pO2 at Pt Temp 64 L ABG pO2 (Temp Correct 60 L ABG HCO3 59 H ABG Base Excess (Actual) 33.3 VBG pH 7.65 H* VBG pCO2 48 VBG pO2 137 VBG HCO3 53 H VBG O2 Saturation 99.0 VBG Base Excess 29.9 Sodium Potassium Chloride Carbon Dioxide Anion Gap BUN Creatinine Estim Creat Clear Calc Estimated GFR Random Glucose Calcium Phosphorus Magnesium Albumin Quality Stroke Does the patient have a stroke diagnosis?: No VTE Prior VTE?: No VTE Risk Level:: Medical - moderate - high VTE Device Contraindication: Treatment Not Indicated VTE Drug Contraindication: N/A - Med Ordered Progress Note: A&P Assessment and plan (1) Obesity hypoventilation syndrome: Status: Acute Assessment and Plan: Assessment: 75-year-old lady with underlying morbid obesity and bilateral diaphragmatic paralysis admitted with acute on chronic hypoxic and hypercapnic respiratory failure requiring ventilatory support. Plan: Neuro: Initial visual hallucination likely secondary to CO2 narcosis. Cardiac: Likely exacerbation of underlying chronic congestive heart failure. 2D echocardiogram is pending. Continue with diuresis. Pulmonary: Acute on chronic hypoxic and hypercapnic respiratory failure, likely secondary to exacerbation of underlying chronic congestive heart failure. Now requiring ventilatory support. Underlying history of bilateral diaphragmatic paralysis and supplemental oxygen dependency after cervical surgery. Likely underlying undiagnosed obesity hyperventilation syndrome. Continue to titrate of ventilatory support as tolerated. Renal: No acute issues. Endo: No acute issues. GI: No acute issues. ID: No acute issues Heme/Onc: No acute issues. Psych: No acute issues. Miscellaneous: No acute issues. Prophylaxis: Heparin, ppi Diet: Tube feeds Critical care time spent: 45 minutes (2) Acute on chronic respiratory failure with hypoxia and hypercapnia: Status: Acute (3) Congestive heart failure: Status: Acute (4) CO2 narcosis: Status: Acute (5) Metabolic encephalopathy: Status: Acute
[2021-01-31 15:24] LABS: ABG Base Excess 29.6 mmol/L; ABG HCO3 56 mmol/L (22-26); ABG pCO2 69 mmHg (32-45); ABG pCO2 TC 65 mmHg (32-45); ABG pH 7.52 (7.35-7.45); ABG pH TC 7.54 (7.35-7.45); ABG pO2 109 mmHg (83-108); ABG pO2 TC 101 (83-108)
[2021-01-31 15:24] LABS: ABG Refer to POC result
[2021-01-31] MEDS: Albuterol/Iprat 2.5/0.5MG 3 ML AMPUL.NEB INHALE ×2 (15:24→19:26)
[2021-01-31] MEDS: propofoL 1,000 MG/100 ML VIAL 12.38 MG IVCONT (15:56)
--- NOTE | 2021-01-31 16:32 | PC.NURSE ---
Afebrile, vss. SB/SR on tele- occasionaly pacs/pvcs Sedated on propofol and fentanyl, weak cough/gag, sluggish pupils, unable to follow commands. Vent settings changed to AC rate 16, TV 430, fio2 40%, peep 5. U/o 15-25/hr, MD aware. Repoed pt as tolerated, bath given. Md attempting to contact family.
[2021-01-31] MEDS: fentaNYL citrate/NS 1,000 MCG/100 ML PLAST..BAG 17.5 MCG IVCONT (16:46)
[2021-01-31] MEDS: Midazolam HCl/PF 2 MG/2 ML VIAL IVPUSH (20:38)
[2021-02-01] VITALS (34 sets, daily range): BP systolic 90–126; BP diastolic 41–87; PULSE 60–191; RESP 14–28; TEMP 35.9–37.1; O2SAT 86–98; BMI 47.4
[2021-02-01] MEDS: propofoL 1,000 MG/100 ML VIAL 18.57 MG IVCONT (00:52)
[2021-02-01] MEDS: Albumin Human 25 % 100 ML IV (02:17)
[2021-02-01] MEDS: Midazolam HCl/PF 2 MG/2 ML VIAL IVPUSH (03:30)
[2021-02-01 05:20] LABS: VBG Base Excess 25.9 mmol/L; VBG HCO3 50 mmol/L (22-26); VBG pCO2 49 mmHg; VBG pH 7.61 (7.32-7.43); VBG pO2 60 mmHg
[2021-02-01 05:46] LABS: MANUAL DIFF FLAG NO
[2021-02-01 05:51] LABS: Basophils Percent Auto 0.3 % (0-2); Eosinophils Absolute Auto 0.2 X10*3/uL (0.0-0.4); Eosinophils Percent Auto 2.6 % (0-4); Hematocrit 25.1 % (37-47); Hemoglobin 7.3 g/dl (12.0-16.0); Imm Gran Abs Auto 0.04 X10*3/uL (0.00-0.03); Imm Gran Pct Auto 0.6 % (0.0-0.4); Lymphocytes Absolute Auto 0.9 X10*3/uL (1.2-4.9); Lymphocytes Percent Auto 12.9 % (20-40); Mean Corpuscular HGB Conc 29.1 g/dl (31.0-35.0); Mean Corpuscular Hemoglobin 25.5 pg (27.0-33.0); Mean Corpuscular Volume 87.8 fL (80-98); Mean Platelet Volume 11.6 fL (9.4-12.3); Monocytes Absolute Auto 0.6 X10*3/uL (0.1-1.2); Monocytes Percent Auto 8.2 % (2-11); NRBC Pct Auto 0.4 /100WBC (0.0-0.2); Neutrophils Absolute Auto 5.2 X10*3/uL (2.0-8.3); Neutrophils Percent Auto 75.4 % (45-73); Platelet Count 223 X10*3/uL (160-400); Red Blood Count 2.86 X10*6/uL (4.20-5.50); White Blood Count 6.9 X10*3/uL (4.8-10.8)
[2021-02-01 06:00] LABS: Venous Blood Gas Refer to POC result
[2021-02-01] MEDS: Heparin Sodium,Porcine 5,000 UNIT/ML VIAL 5000 UNIT SUBCUT ×3 (06:05→20:13)
[2021-02-01] MEDS: fentaNYL citrate/NS 1,000 MCG/100 ML PLAST..BAG 15 MCG IVCONT (06:05)
[2021-02-01] MEDS: propofoL 1,000 MG/100 ML VIAL 15.47 MG IVCONT (06:05)
[2021-02-01 06:26] LABS: Albumin Level 3.8 g/dL (3.5-5.0); Anion Gap 12 (12-20); Blood Urea Nitrogen 21 mg/dL (9-16); Calcium 8.4 mg/dL (8.4-10.2); Carbon Dioxide 42 mmol/L (22-29); Chloride 94 mmol/L (96-108); Creatinine Clr Calc Pharmacy 55.8; Estimated Glomerular Filt Rate 54; Glucose Random 82 mg/dL (60-115); Magnesium 1.8 mg/dL (1.6-2.6); Phosphorus 4.7 mg/dL (2.7-4.5); Potassium 3.1 mmol/L (3.3-5.1); Sodium 145 mmol/L (135-145)
--- NOTE | 2021-02-01 07:06 | P.CDIC_ITS ---
CDI Concurrent Query Documentation Clarification: PHYSICIAN'S DOCUMENTATION REQUEST Date of Query: 02/01/21 0707 Patient Name: Pastora Calderon Admit Date: 01/30/21 Dear Doctor, A review of the medical record indicates additional documentation may be indicated. Please review below and update the documentation accordingly. Risk Factors/Clinical Indicators/Treatments Wound assessment - 01/31: Pressure injury left posterior thigh Stage III Triad applied, gauze square and foam applied. Based on the above, could you please provide, in the Progress Notes, further information regarding the ulcer/wound/injury: * If a pressure ulcer/injury, please also include the stage* of the ulcer: * Stage 1 - Skin intact, non-blanchable redness * Stage 2 - Partial thickness loss of dermis, includes intact or open blister * Stage 3 - Full thickness tissue not including bone, tendon, or muscle * Stage 4 - Full thickness tissue loss, including exposed bones, tendon, or muscle * Unstageable - Full thickness tissue loss in which the base of the ulcer is covered by slough (yellow, guevara, love, green or brown) and/or eschar (guevara, brown, or black) in the wound bed. * Unable to determine *Source: National Pressure Ulcer Advisory Panel (NPUAP) Use of terms such as suspected, likely, concern for, or probable (associated with a specific diagnosis that is being evaluated, monitored, or treated as if it exists) are acceptable and can be coded in the inpatient setting, when documented at the time of discharge. Thank you, Letitia Mullins [facility], CDIS Extension: [phone] Please use your independent medical judgment in providing your response. THIS QUERY IS PART OF THE PERMANENT MEDICAL RECORD Provider Response: Other (Stage 3) Other Diagnosis: Stage 3
--- NOTE | 2021-02-01 07:14 | P.CDIC_ITS ---
CDI Concurrent Query Documentation Clarification: PHYSICIAN'S DOCUMENTATION REQUEST Date of Query: 02/01/21 0714 Patient Name: Pastora Calderon Admit Date: 01/30/21 Dear Doctor, A review of the medical record indicates additional documentation may be indicated. Please review below and update the documentation accordingly. Risk Factors/Clinical Indicators/Treatments Wound assessment 01/30 - Pressure injury right posterior thigh Stage III. Triad applied, foam applied. Based on the above, could you please provide, in the Progress Notes, further information regarding the ulcer/wound: * If a pressure ulcer/injury, please also include the stage* of the ulcer: * Stage 1 - Skin intact, non-blanchable redness * Stage 2 - Partial thickness loss of dermis, includes intact or open blister * Stage 3 - Full thickness tissue not including bone, tendon, or muscle * Stage 4 - Full thickness tissue loss, including exposed bones, tendon, or muscle * Unstageable - Full thickness tissue loss in which the base of the ulcer is covered by slough (yellow, guevara, love, green or brown) and/or eschar (guevara, brown, or black) in the wound bed. * Unable to determine *Source: National Pressure Ulcer Advisory Panel (NPUAP) Use of terms such as suspected, likely, concern for, or probable (associated with a specific diagnosis that is being evaluated, monitored, or treated as if it exists) are acceptable and can be coded in the inpatient setting, when documented at the time of discharge. Thank you, Letitia Mullins [facility], CDIS Extension: [phone] Please use your independent medical judgment in providing your response. THIS QUERY IS PART OF THE PERMANENT MEDICAL RECORD Provider Response: Other (Stage 3) Other Diagnosis: Stage 3
[2021-02-01] MEDS: Potassium Chloride Packet 20 MEQ PACKET 60 MEQ OG-TUBE (07:58)
[2021-02-01] MEDS: Chlorhexidine Gluc Oral Rinse 15 ML MOUTHWASH BUCCAL ×3 (07:59→20:13)
[2021-02-01] MEDS: acetaZOLAMIDE sodium 500 MG VIAL IVPUSH ×2 (07:59→20:13)
[2021-02-01] MEDS: Albuterol/Iprat 2.5/0.5MG 3 ML AMPUL.NEB INHALE ×3 (08:41→19:40)
[2021-02-01] MEDS: Potassium Chloride/H20 10 MEQ/100 ML PIGGYBACK 100 MEQ IV ×4 (08:52→12:23)
[2021-02-01] MEDS: Metoprolol Tartrate 5 MG/5 ML VIAL IVPUSH (09:57)
[2021-02-01] MEDS: Nystatin Powder 15 GM BOTTLE 1 APPL TOPICAL ×2 (10:01→20:56)
[2021-02-01] MEDS: dilTIAZem HCL 50 MG/10 ML VIAL 10 MG IVPUSH (10:06)
[2021-02-01] MEDS: Amiodarone/Dextrose 150 MG/100 ML PLAST..BAG 600 MG IV (10:25)
[2021-02-01] MEDS: Amiodarone HCL 900 MG in 0.9 % Sodium Chloride 500 ML 34.53 MG IVCONT (10:41)
--- NOTE | 2021-02-01 12:37 | P.PNCC_ITS ---
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 On ER evaluation patient was noted to be in acute hypoxic and hypercapnic respiratory failure, likely secondary to underlying congestive heart failure and obesity hyperventilation syndrome. She was started on diuresis and BiPAP and admitted to intensive care unit. Patient's hypercapnia progressed despite BiPAP support in she required emergent intubation and ventilatory support. Events overnight. Respiratory acidosis has resolved. Unable to pressure support trial. Critical Care Time (minutes): 45 Physical Exam Vital Signs: Vital Signs: Last Vital Signs Temp 98.6 F 02/01/21 12:00 Pulse 139 H 02/01/21 12:00 Resp 16 02/01/21 12:00 BP 90/64 02/01/21 12:00 Pulse Ox 94 02/01/21 12:00 Body Mass Index 47.4 Const: General: no acute distress and other (Sedated on the vent, follows commands with sedation vacation) Nutritional Appearance: obese Eyes: Sclerae: sclerae normal EOM: EOMs intact bilaterally Neck: Neck: Yes no lymphadenopathy, Yes trachea midline and Yes supple Resp: Effort & Inspection: normal respiratory effort and no respiratory distress Auscultation: clear to auscultation bilaterally Cardio: Rate: regular rate and tachycardic Rhythm: regular rhythm Heart sounds: no gallops, no murmurs and no rubs GI: Palpation (GI): Soft to palpation and Other GI palpation findings present ( Nontender) Auscultation: normal bowel sounds Extrem: General: No clubbing, No cyanosis and Yes pedal edema (2+ bilateral) Objective Data Labs CBC & Chem 7: 02/01/21 05:14 02/01/21 05:14 Labs: Laboratory Results - last 24 hr 01/31/21 02/01/21 02/01/21 15:12 05:14 05:14 WBC 6.9 RBC 2.86 L Hgb 7.3 L Hct 25.1 L MCV 87.8 MCH 25.5 L MCHC 29.1 L RDW 17.0 H Plt Count 223 MPV 11.6 Immature Gran % (Auto) 0.6 H Neut % (Auto) 75.4 H Lymph % (Auto) 12.9 L [place] % (Auto) 8.2 Eos % (Auto) 2.6 Baso % (Auto) 0.3 Lymph # (Auto) 0.9 L [place] # (Auto) 0.6 Eos # (Auto) 0.2 Baso # (Auto) 0.0 Abs Immat Gran (auto) 0.04 H Absolute Neuts (auto) 5.2 Absolute Nucleated RBC 0.030 H Nucleated RBC % (auto) 0.4 H O2 Saturation 99.0 ABG pH at Pt Temp 7.52 H ABG pH (Temp Correct) 7.54 H ABG pCO2 at Pt Temp 69 H* ABG pCO2 (Temp Corrct 65 H* ABG pO2 at Pt Temp 109 H ABG pO2 (Temp Correct 101 ABG HCO3 56 H ABG Base Excess (Actual) 29.6 VBG pH VBG pCO2 VBG pO2 VBG HCO3 VBG O2 Saturation VBG Base Excess Sodium 145 Potassium 3.1 L D Chloride 94 L Carbon Dioxide 42 H* Anion Gap 12 BUN 21 H Creatinine 1.01 Estim Creat Clear Calc 55.8 Estimated GFR 54 Random Glucose 82 Calcium 8.4 Phosphorus 4.7 H Magnesium 1.8 Albumin 3.8 D 02/01/21 05:15 WBC RBC Hgb Hct MCV MCH MCHC RDW Plt Count MPV Immature Gran % (Auto) Neut % (Auto) Lymph % (Auto) [place] % (Auto) Eos % (Auto) Baso % (Auto) Lymph # (Auto) [place] # (Auto) Eos # (Auto) Baso # (Auto) Abs Immat Gran (auto) Absolute Neuts (auto) Absolute Nucleated RBC Nucleated RBC % (auto) O2 Saturation ABG pH at Pt Temp ABG pH (Temp Correct) ABG pCO2 at Pt Temp ABG pCO2 (Temp Corrct ABG pO2 at Pt Temp ABG pO2 (Temp Correct ABG HCO3 ABG Base Excess (Actual) VBG pH 7.61 H* VBG pCO2 49 VBG pO2 60 VBG HCO3 50 H VBG O2 Saturation 90.0 VBG Base Excess 25.9 Sodium Potassium Chloride Carbon Dioxide Anion Gap BUN Creatinine Estim Creat Clear Calc Estimated GFR Random Glucose Calcium Phosphorus Magnesium Albumin Microbiology Microbiology Results: Microbiology 01/30/21 11:15 Blood - Venous Blood Culture - Preliminary No growth after 24 hours. 01/30/21 10:30 Blood - Venous Blood Culture - Preliminary No growth after 24 hours. Quality Stroke Does the patient have a stroke diagnosis?: No VTE Prior VTE?: No VTE Risk Level:: Medical - moderate - high VTE Device Contraindication: Treatment Not Indicated VTE Drug Contraindication: N/A - Med Ordered Progress Note: A&P Assessment and plan (1) Diaphragmatic paralysis: Status: Acute Assessment and Plan: Assessment: 75-year-old lady with underlying morbid obesity and bilateral diaphragmatic paralysis admitted with acute on chronic hypoxic and hypercapnic respiratory failure requiring ventilatory support. Plan: Neuro: Initial visual hallucination likely secondary to CO2 narcosis. Cardiac: Mild exacerbation of underlying chronic congestive heart failure, improved with diuresis. Pulmonary: Acute on chronic hypoxic and hypercapnic respiratory failure, l appears to be secondary to combination of underlying diaphragmatic paralysis and worsening obesity hyperventilation syndrome. Now requiring ventilatory support. At this time unable to tolerate pressure support trials. May require tracheostomy placement. Continue to titrate of ventilatory support as tolerated. Renal: No acute issues. Endo: No acute issues. GI: No acute issues. ID: No acute issues Heme/Onc: No acute issues. Psych: No acute issues. Miscellaneous: No acute issues. Prophylaxis: Heparin, ppi Diet: Tube feeds Critical care time spent: 45 minutes (2) Acute on chronic respiratory failure with hypoxia and hypercapnia: Status: Acute (3) Obesity hypoventilation syndrome: Status: Acute (4) CO2 narcosis: Status: Acute (5) Metabolic encephalopathy: Status: Acute (6) Congestive heart failure: Status: Acute
[2021-02-01] MEDS: propofoL 1,000 MG/100 ML VIAL 12.38 MG IVCONT ×2 (13:55→20:13)
--- NOTE | 2021-02-01 14:58 | PC.NURSE ---
Addendum entered by Nieves Sanchez RN 02/01/21 18:19: Afebrile. VSS. Sedated on propofol and fentanyl, weak cough/gag, sluggish pupils, unable to follow commands. Ac settings rate 16, TV 430, FIO2 50%, peep 5. Scant thick guevara secretions inline, oral care done. U/o 30-60/hr, Sinus rhythm/sinus arrhythmia with pvs/pacs on tele, amiodarone running per emar. Bath given, skin care, repo q2hr, update to and granddaughter, dsgs changed per wound nurse recommendations. Repo q2hr, prevalon mattress, airtap bed. Addendum entered by Nieves Sanchez RN 02/01/21 15:16: during sedation vacation, HR ranged form 80s- 130s. When sedation vacation ended, Hr went up to 190s, 5mg IVP lopressor given, Hr still remained 170s, 10mg IVP cardizem was given, HR ranging in 150s still occasionally up to 160s. Amiodorone bolus and gtt started per emar. Original Note: Sedation vacation started at 0932. Propofol and fentanyl completely turned off. Pt unable to initiate own breaths, put unable to open eyes/follow commands, occasional grimaces noted during sedation vacation. MD at bedside, vent settings returned to prior, sedation turned back on per emar
[2021-02-01] MEDS: fentaNYL citrate/NS 1,000 MCG/100 ML PLAST..BAG 10 MCG IVCONT (15:13)
[2021-02-02] VITALS (33 sets, daily range): BP systolic 84–120; BP diastolic 37–60; PULSE 64–78; RESP 16–18; TEMP -12.3–37.4; O2SAT 5–96; BMI 48.2
[2021-02-02] MEDS: fentaNYL citrate/NS 1,000 MCG/100 ML PLAST..BAG 10 MCG IVCONT ×3 (02:15→22:53)
[2021-02-02] MEDS: Heparin Sodium,Porcine 5,000 UNIT/ML VIAL 5000 UNIT SUBCUT ×2 (04:23→11:49)
[2021-02-02] MEDS: propofoL 1,000 MG/100 ML VIAL 12.38 MG IVCONT ×3 (04:23→18:42)
[2021-02-02 05:32] LABS: VBG Base Excess 15.4 mmol/L; VBG HCO3 39 mmol/L (22-26); VBG pCO2 44 mmHg; VBG pH 7.55 (7.32-7.43); VBG pO2 62 mmHg
[2021-02-02 05:38] LABS: MANUAL DIFF FLAG NO
[2021-02-02 05:42] LABS: Basophils Percent Auto 0.2 % (0-2); Eosinophils Absolute Auto 0.1 X10*3/uL (0.0-0.4); Eosinophils Percent Auto 0.6 % (0-4); Hematocrit 26.1 % (37-47); Hemoglobin 7.7 g/dl (12.0-16.0); Imm Gran Pct Auto 0.9 % (0.0-0.4); Lymphocytes Absolute Auto 0.7 X10*3/uL (1.2-4.9); Lymphocytes Percent Auto 6.2 % (20-40); Mean Corpuscular HGB Conc 29.5 g/dl (31.0-35.0); Mean Corpuscular Hemoglobin 25.8 pg (27.0-33.0); Mean Corpuscular Volume 87.6 fL (80-98); Mean Platelet Volume 11.5 fL (9.4-12.3); Monocytes Absolute Auto 0.9 X10*3/uL (0.1-1.2); Monocytes Percent Auto 7.9 % (2-11); NRBC Pct Auto 0.2 /100WBC (0.0-0.2); Neutrophils Absolute Auto 9.7 X10*3/uL (2.0-8.3); Neutrophils Percent Auto 84.2 % (45-73); Platelet Count 210 X10*3/uL (160-400); Red Blood Count 2.98 X10*6/uL (4.20-5.50); Red Cell Distribution Width 17.2 % (11.0-16.0); White Blood Count 11.5 X10*3/uL (4.8-10.8)
[2021-02-02 06:00] LABS: Albumin Level 3.5 g/dL (3.5-5.0); Anion Gap 13 (12-20); Blood Urea Nitrogen 17 mg/dL (9-16); Carbon Dioxide 35 mmol/L (22-29); Chloride 99 mmol/L (96-108); Estimated Glomerular Filt Rate 54; Glucose Random 91 mg/dL (60-115); Magnesium 1.9 mg/dL (1.6-2.6); Phosphorus 3.9 mg/dL (2.7-4.5); Potassium 3.2 mmol/L (3.3-5.1); Sodium 144 mmol/L (135-145)
[2021-02-02 06:41] LABS: Venous Blood Gas Refer to POC result
[2021-02-02] MEDS: Potassium Chloride/H20 10 MEQ/100 ML PIGGYBACK 100 MEQ IV ×4 (07:41→11:16)
[2021-02-02] MEDS: Calcium Gluconate/NaCl,Iso-Osm 1 GM/50 ML PLAST..BAG IV (07:41)
[2021-02-02] MEDS: Albuterol/Iprat 2.5/0.5MG 3 ML AMPUL.NEB INHALE ×4 (07:47→20:17)
[2021-02-02] MEDS: acetaZOLAMIDE sodium 500 MG VIAL IVPUSH ×2 (08:05→20:49)
[2021-02-02] MEDS: Chlorhexidine Gluc Oral Rinse 15 ML MOUTHWASH BUCCAL ×3 (08:05→20:49)
[2021-02-02] MEDS: Nystatin Powder 15 GM BOTTLE 1 APPL TOPICAL ×2 (08:55→20:49)
[2021-02-02] MEDS: Amiodarone HCL 900 MG in 0.9 % Sodium Chloride 500 ML 17.27 MG IVCONT (09:32)
--- NOTE | 2021-02-02 09:43 | MHC.CLN ---
F/U PT TO START TF TODAY PT WITH INCREASED NUTRITION NEEDS R/T PRESSURE INJURIES RECOMMEND PROMOTE AT MAX GOAL RATE 40ML/HR WITH 30ML OF PROSOURCE X1 PER DAY TO PROVIDE 1020KCALS (1347KCALS WITH SEDATION; 30KCALS/KG) BASED ON IBW, 75G PROTEIN (1.7G/KG), 805CC FREE WATER FROM FORMULA START TF AT 10ML/HR AND INCREASE BY 10ML Q 4 HRS UNTIL MAX GOAL IS ACHIEVED MONITOR TOLERANCE, RESIDUALS AND LYTES
--- NOTE | 2021-02-02 11:01 | PC.NURSE ---
Skin/wound assessment completed 01/30 and today. Patient has Stage 3 to left and right posterior thighs, bilateral villalba redness with dry skin closed ulcers, fungal infections in groin, under breast and abdominal fold. Triad applied to ulcers on thighs and covered with gauze and foam. Interdry placed in groin, under breast and in abdominal folds. Will continue to monitor.
[2021-02-02] MEDS: Albumin Human 25 % 100 ML IV ×3 (11:42→22:57)
--- NOTE | 2021-02-02 12:28 | MHC.CM.PN ---
Pt remains intubated in ICU : failed PSV trial: feels pt may ultimately require peg/trach placement: Pt is O2 dependent at baseline, resides with her spouse and has numerous limitations d/t SOB with exertion. MD to have a discussion about goals of care with pt's spouse, Sai: Pt does not have a HCP or MOLST per review of EMR and CM discussion with Sai. Legal guardianship may need to be pursued if pt were to require peg/trach/LTAC placement. CM to follow.
--- NOTE | 2021-02-02 14:18 | PM.CCPN ---
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 On ER evaluation patient was noted to be in acute hypoxic and hypercapnic respiratory failure, likely secondary to underlying congestive heart failure and obesity hyperventilation syndrome. She was started on diuresis and BiPAP and admitted to intensive care unit. Patient's hypercapnia progressed despite BiPAP support in she required emergent intubation and ventilatory support. No events overnight. Continues to fail pressure support trials. Critical Care Time (minutes): 45 Physical Exam Vital Signs: Vital Signs: Last Vital Signs Temp 98.2 F 02/02/21 14:00 Pulse 69 02/02/21 14:00 Resp 16 02/02/21 14:00 BP 118/56 L 02/02/21 14:00 Pulse Ox 92 02/02/21 14:00 Body Mass Index 48.2 Const: General: no acute distress and other (Sedated on the vent) Nutritional Appearance: obese Eyes: Sclerae: sclerae normal EOM: EOMs intact bilaterally Neck: Neck: Yes no lymphadenopathy, Yes trachea midline and Yes supple Resp: Auscultation: clear to auscultation bilaterally Cardio: Rate: regular rate Rhythm: abnormal rhythm regularly irregular Heart sounds: no gallops, no murmurs and no rubs GI: Palpation (GI): Soft to palpation and Other GI palpation findings present ( Nontender) Auscultation: normal bowel sounds Extrem: General: No clubbing, No cyanosis and Yes pedal edema (2+ bilateral) Objective Data Labs CBC & Chem 7: 02/02/21 05:26 02/02/21 05:26 Labs: Laboratory Results - last 24 hr 02/02/21 02/02/21 02/02/21 05:26 05:26 05:26 WBC 11.5 H RBC 2.98 L Hgb 7.7 L Hct 26.1 L MCV 87.6 MCH 25.8 L MCHC 29.5 L RDW 17.2 H Plt Count 210 MPV 11.5 Immature Gran % (Auto) 0.9 H Neut % (Auto) 84.2 H Lymph % (Auto) 6.2 L [place] % (Auto) 7.9 Eos % (Auto) 0.6 Baso % (Auto) 0.2 Lymph # (Auto) 0.7 L [place] # (Auto) 0.9 Eos # (Auto) 0.1 Baso # (Auto) 0.0 Abs Immat Gran (auto) 0.10 H Absolute Neuts (auto) 9.7 H Absolute Nucleated RBC 0.020 H Nucleated RBC % (auto) 0.2 VBG pH 7.55 H VBG pCO2 44 VBG pO2 62 VBG HCO3 39 H VBG O2 Saturation 89.0 VBG Base Excess 15.4 Sodium 144 Potassium 3.2 L Chloride 99 Carbon Dioxide 35 H Anion Gap 13 BUN 17 H Creatinine 1.00 Estim Creat Clear Calc 57.0 Estimated GFR 54 Random Glucose 91 Calcium 8.0 L Phosphorus 3.9 Magnesium 1.9 Albumin 3.5 Microbiology Microbiology Results: Microbiology 01/30/21 11:15 Blood - Venous Blood Culture - Preliminary No growth after 48 hours. 01/30/21 10:30 Blood - Venous Blood Culture - Preliminary No growth after 48 hours. Quality Stroke Does the patient have a stroke diagnosis?: No VTE Prior VTE?: No VTE Risk Level:: Medical - moderate - high VTE Device Contraindication: Treatment Not Indicated VTE Drug Contraindication: N/A - Med Ordered Progress Note: A&P Assessment and plan (1) Diaphragmatic paralysis: Status: Acute Assessment and Plan: Assessment: 75-year-old lady with underlying morbid obesity and bilateral diaphragmatic paralysis admitted with acute on chronic hypoxic and hypercapnic respiratory failure requiring ventilatory support. Plan: Neuro: Initial visual hallucination likely secondary to CO2 narcosis. Cardiac: Mild exacerbation of underlying chronic congestive heart failure, improved with diuresis. New onset AFib, continues on amiodarone for rate control, started on anticoagulation. Pulmonary: Acute on chronic hypoxic and hypercapnic respiratory failure, appears to be secondary to combination of underlying diaphragmatic paralysis and worsening obesity hypoventilation syndrome. Now requiring ventilatory support. Unable to tolerate pressure support trials. May require tracheostomy placement. Continue to titrate of ventilatory support as tolerated. Discussion with family regarding goals of care ongoing. Renal: No acute issues. Endo: No acute issues. GI: No acute issues. ID: No acute issues Heme/Onc: No acute issues. Psych: No acute issues. Miscellaneous: No acute issues. Prophylaxis: Heparin, ppi Diet: Tube feeds Critical care time spent: 45 minutes (2) Metabolic encephalopathy: Status: Acute (3) Obesity hypoventilation syndrome: Status: Acute (4) Acute on chronic respiratory failure with hypoxia and hypercapnia: Status: Acute (5) Congestive heart failure: Status: Acute (6) Afib: Status: Acute
[2021-02-02 15:22] LABS: Basophils Percent Auto 0.2 % (0-2); Eosinophils Absolute Auto 0.1 X10*3/uL (0.0-0.4); Eosinophils Percent Auto 1.1 % (0-4); Hematocrit 26.1 % (37-47); Hemoglobin 7.5 g/dl (12.0-16.0); Imm Gran Abs Auto 0.12 X10*3/uL (0.00-0.03); Imm Gran Pct Auto 0.9 % (0.0-0.4); Lymphocytes Absolute Auto 0.9 X10*3/uL (1.2-4.9); Lymphocytes Percent Auto 6.8 % (20-40); MANUAL DIFF FLAG SCAN; Mean Corpuscular HGB Conc 28.7 g/dl (31.0-35.0); Mean Corpuscular Hemoglobin 25.9 pg (27.0-33.0); Mean Platelet Volume 11.6 fL (9.4-12.3); Monocytes Absolute Auto 1.1 X10*3/uL (0.1-1.2); Monocytes Percent Auto 8.1 % (2-11); NRBC Pct Auto 0.2 /100WBC (0.0-0.2); Neutrophils Absolute Auto 10.8 X10*3/uL (2.0-8.3); Neutrophils Percent Auto 82.9 % (45-73); PLT CLUMP 1; Red Cell Distribution Width 17.4 % (11.0-16.0); SCAN SMEAR FLAG 1
[2021-02-02 15:40] LABS: SLIDE REVIEW VERIFIED
--- NOTE | 2021-02-02 18:11 | PC.NURSE ---
PROPOFOL AND FENTANYL GTTS CUT IN HALF FOR SEDATION VACATION PER MD. SEDATION VACATION FROM 0935 - 1107. UNABLE TO ADJUST VENT TO PSV, PT WOULD GO APNEIC WITH RT BEDSIDE. MD NOTIFIED. TUBE FEEDS STARTED AT 1000 PROMOTE 10 ML/HR, MAX OF 40 ML/HR. PROSOURCE ADMINISTERED. WOUND DRESSINGS TO BILATERAL POSTERIOR THIGHS CHANGED BY WOUND RN - TRIAD AND PINK FOAMS. NYSTATIN AND INTERDRY TO FOLDS. BATHED, SHAMPOOED, Q2HR REPO, BARRIER CREAM, PREVALON MATTRESS, PILLOWS, WEDGES, AND HEELBOS UTILIZED. GRANDDAUGHTER YANICK MCKOY ([phone]) BEDSIDE FOR A VISIT AND UPDATED BY AND THIS RN.
[2021-02-02] MEDS: Apixaban 5 MG TABLET PO (20:49)
[2021-02-03] VITALS (32 sets, daily range): BP systolic 105–130; BP diastolic 44–65; PULSE 58–77; RESP 15–18; TEMP 35.9–36.8; O2SAT 91–97; BMI 44.0
[2021-02-03] MEDS: propofoL 1,000 MG/100 ML VIAL 12.38 MG IVCONT (01:58)
[2021-02-03] MEDS: Midazolam HCl/PF 2 MG/2 ML VIAL IVPUSH ×2 (02:42→06:05)
--- NOTE | 2021-02-03 03:21 | PC.NURSE ---
Pt maintained on AC vent settings. Multiple episodes of high peak pressures. Ett suctioned for scant amt of sputum. Bite block in place. ENDOCRINOLOGY PHYSICIAN Everette at bedside and stated pt has diaphragmatic spasms that triggers high pressure alarms. Tidal and minute volumes decrease to as low as 100 TV and 2 MV during this time. It does not last more than a minute and O2 sats maintained. The last episode however, was prolonged and O2 sat began to drop and so ENDOCRINOLOGY PHYSICIAN ordered Versed 2 mg IV which helped and volumes and sats improved. Pt on propofol and fentanyl for sedation with good effect. Amiodarone infusing as ordered for afib. Monitor shows mostly afib but occ SR with pac's. U/O is good 30-75 ml/hr..
[2021-02-03 05:35] LABS: VBG Base Excess 11.6 mmol/L; VBG HCO3 37 mmol/L (22-26); VBG pCO2 54 mmHg; VBG pH 7.44 (7.32-7.43); VBG pO2 45 mmHg
[2021-02-03] MEDS: Albumin Human 25 % 100 ML IV (05:48)
[2021-02-03 06:04] LABS: Venous Blood Gas Refer to POC result
[2021-02-03 06:22] LABS: Alanine Aminotransferase 12 U/L (0-31); Albumin Level 3.3 g/dL (3.5-5.0); Alkaline Phosphatase 82 U/L (39-117); Anion Gap 13 (12-20); Aspartate Amino Transferase 27 U/L (5-31); Bilirubin Total 0.6 mg/dL (0.0-1.0); Blood Urea Nitrogen 17 mg/dL (9-16); Carbon Dioxide 30 mmol/L (22-29); Chloride 102 mmol/L (96-108); Creatinine Clr Calc Pharmacy 59.9; Estimated Glomerular Filt Rate > 60; Glucose Random 124 mg/dL (60-115); Phosphorus 3.4 mg/dL (2.7-4.5); Potassium 2.8 mmol/L (3.3-5.1); Sodium 142 mmol/L (135-145); Total Protein 5.2 g/dL (6.5-8.0)
[2021-02-03] MEDS: Potassium Chloride Packet 20 MEQ PACKET 40 MEQ OG-TUBE (07:08)
[2021-02-03] MEDS: Potassium Chloride/H20 10 MEQ/100 ML PIGGYBACK 100 MEQ IV ×8 (07:08→14:53)
[2021-02-03] MEDS: Albuterol/Iprat 2.5/0.5MG 3 ML AMPUL.NEB INHALE ×4 (07:43→19:50)
[2021-02-03] MEDS: fentaNYL citrate/NS 1,000 MCG/100 ML PLAST..BAG 10 MCG IVCONT ×2 (07:47→17:36)
[2021-02-03] MEDS: propofoL 1,000 MG/100 ML VIAL 18.57 MG IVCONT ×4 (07:48→22:42)
[2021-02-03] MEDS: Apixaban 5 MG TABLET PO ×2 (07:50→21:42)
[2021-02-03] MEDS: acetaZOLAMIDE sodium 500 MG VIAL IVPUSH ×2 (07:50→21:42)
[2021-02-03] MEDS: Chlorhexidine Gluc Oral Rinse 15 ML MOUTHWASH BUCCAL ×3 (07:50→21:42)
[2021-02-03] MEDS: Nystatin Powder 15 GM BOTTLE 1 APPL TOPICAL ×2 (07:51→21:42)
[2021-02-03] MEDS: Lactulose 20 GM/30 ML SOLUTION 30 GM PO ×2 (10:47→21:42)
[2021-02-03] MEDS: Potassium Chloride Packet 20 MEQ PACKET 60 MEQ PO (10:48)
[2021-02-03] MEDS: bisacodyL 10 MG SUPP.RECT PR (10:58)
[2021-02-03] MEDS: Amiodarone HCL 900 MG in 0.9 % Sodium Chloride 500 ML 17.27 MG IVCONT (10:58)
--- NOTE | 2021-02-03 12:27 | P.PNCC_ITS ---
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 On ER evaluation patient was noted to be in acute hypoxic and hypercapnic respiratory failure, likely secondary to underlying congestive heart failure and obesity hyperventilation syndrome. She was started on diuresis and BiPAP and admitted to intensive care unit. Patient's hypercapnia progressed despite BiPAP support in she required emergent intubation and ventilatory support. Overnight with increased residuals. Tube feeds stopped. Started on lactulose. Critical Care Time (minutes): 45 Physical Exam Vital Signs: Vital Signs: Last Vital Signs Temp 97.9 F 02/03/21 11:00 Pulse 68 02/03/21 12:07 Resp 16 02/03/21 11:00 BP 130/47 L 02/03/21 11:00 Pulse Ox 95 02/03/21 11:00 Body Mass Index 44.0 Const: General: no acute distress and other (Sedated on the vent) Nutritional Appearance: obese Eyes: Sclerae: sclerae normal EOM: EOMs intact bilaterally Neck: Neck: Yes no lymphadenopathy, Yes trachea midline and Yes supple Resp: Effort & Inspection: normal respiratory effort and no respiratory distress Auscultation: clear to auscultation bilaterally Cardio: Rate: regular rate Rhythm: regular rhythm Heart sounds: no gallops, no murmurs and no rubs GI: Palpation (GI): Soft to palpation and Other GI palpation findings present ( Nontender) Auscultation: normal bowel sounds Extrem: General: No clubbing, No cyanosis and Yes pedal edema (2+ bilateral) Objective Data Labs CBC & Chem 7: 02/02/21 14:59 02/03/21 05:22 Labs: Laboratory Results - last 24 hr 02/02/21 02/03/21 02/03/21 14:59 05:22 05:30 WBC 13.0 H RBC 2.90 L Hgb 7.5 L Hct 26.1 L MCV 90.0 MCH 25.9 L MCHC 28.7 L RDW 17.4 H Plt Count TNP MPV 11.6 Immature Gran % (Auto) 0.9 H Neut % (Auto) 82.9 H Lymph % (Auto) 6.8 L [place] % (Auto) 8.1 Eos % (Auto) 1.1 Baso % (Auto) 0.2 Lymph # (Auto) 0.9 L [place] # (Auto) 1.1 Eos # (Auto) 0.1 Baso # (Auto) 0.0 Abs Immat Gran (auto) 0.12 H Absolute Neuts (auto) 10.8 H Absolute Nucleated RBC 0.020 H Nucleated RBC % (auto) 0.2 Smear Tech's Comments VERIFIED VBG pH 7.44 H VBG pCO2 54 VBG pO2 45 VBG HCO3 37 H VBG O2 Saturation 72.0 VBG Base Excess 11.6 Sodium 142 Potassium 2.8 L Chloride 102 Carbon Dioxide 30 H Anion Gap 13 BUN 17 H Creatinine 0.90 Estim Creat Clear Calc 59.9 Estimated GFR > 60 Random Glucose 124 H Calcium 8.0 L Phosphorus 3.4 Magnesium 2.0 Total Bilirubin 0.6 AST 27 D ALT 12 Alkaline Phosphatase 82 D Total Protein 5.2 L D Albumin 3.3 L Microbiology Microbiology Results: Microbiology 01/30/21 11:15 Blood - Venous Blood Culture - Preliminary No growth after 48 hours. 01/30/21 10:30 Blood - Venous Blood Culture - Preliminary No growth after 48 hours. Quality Stroke Does the patient have a stroke diagnosis?: No VTE Prior VTE?: No VTE Risk Level:: Medical - moderate - high VTE Device Contraindication: Treatment Not Indicated VTE Drug Contraindication: N/A - Med Ordered Progress Note: A&P Assessment and plan (1) Afib: Status: Acute Assessment and Plan: Assessment: 75-year-old lady with underlying morbid obesity and bilateral diaphragmatic paralysis admitted with acute on chronic hypoxic and hypercapnic respiratory failure requiring ventilatory support. Plan: Neuro: Initial visual hallucination likely secondary to CO2 narcosis. Cardiac: Mild exacerbation of underlying chronic congestive heart failure, im proved with diuresis. New onset AFib, continues on amiodarone for rate control, and on anticoagulation. Pulmonary: Acute on chronic hypoxic and hypercapnic respiratory failure, appears to be secondary to combination of underlying diaphragmatic paralysis and worsening obesity hypoventilation syndrome. Now requiring ventilatory support. Unable to tolerate pressure support trials. May require tracheostomy placement. Continue to titrate of ventilatory support as tolerated. Discussion with family regarding goals of care ongoing. Renal: No acute issues. Endo: No acute issues. GI: No acute issues. ID: No acute issues Heme/Onc: No acute issues. Psych: No acute issues. Miscellaneous: No acute issues. Prophylaxis: Heparin, ppi Diet: Tube feeds Critical care time spent: 45 minutes (2) Diaphragmatic paralysis: Status: Acute (3) Metabolic encephalopathy: Status: Acute (4) Obesity hypoventilation syndrome: Status: Acute (5) Acute on chronic respiratory failure with hypoxia and hypercapnia: Status: Acute (6) Congestive heart failure: Status: Acute
--- NOTE | 2021-02-03 17:46 | PC.NURSE ---
TUBE FEEDS TURNED OFF AT START OF SHIFT FOR HIGH RESIDUALS > 300, CASSIDY/YELLOW BILE IN COLOR. MD NOTIFIED. RESIDUALS REASSESS IN AFTERNOON. REMAINED HIGH SO OG TURNED ON TO SUCTION - 750 ML IN OUTPUT. MD NOTIFIED. MD ORDERED PO LACTULOSE AND DULCOLAX SUPP - ADMINISTERED, EFFECTS PENDING. RESIDUALS REASSESS 4 HOURS LATER AND CONNECTED TO SUCTION AGAIN FOR AN ADDITIONAL 350 ML OUTPUT. NOTIFIED. 1 SMALL BM THIS SHIFT. MD AWARE. BEDSIDE TO VISIT. UPDATED BY RN AND MD.
[2021-02-03 18:30] LABS: Anion Gap 12 (12-20); Blood Urea Nitrogen 16 mg/dL (9-16); Calcium 8.1 mg/dL (8.4-10.2); Carbon Dioxide 30 mmol/L (22-29); Chloride 104 mmol/L (96-108); Creatinine Clr Calc Pharmacy 59.2; Estimated Glomerular Filt Rate > 60; Glucose Random 90 mg/dL (60-115); Potassium 4.1 mmol/L (3.3-5.1); Sodium 142 mmol/L (135-145)
[2021-02-04] VITALS (33 sets, daily range): BP systolic 100–140; BP diastolic 36–64; PULSE 63–79; RESP 9–16; TEMP 36.1–37.3; O2SAT 91–99; BMI 43.5
[2021-02-04] MEDS: fentaNYL citrate/NS 1,000 MCG/100 ML PLAST..BAG 10 MCG IVCONT (02:03)
[2021-02-04] MEDS: propofoL 1,000 MG/100 ML VIAL 18.57 MG IVCONT ×2 (02:03→07:39)
[2021-02-04 05:28] LABS: VBG Base Excess 6.9 mmol/L; VBG HCO3 33 mmol/L (22-26); VBG pCO2 60 mmHg; VBG pH 7.35 (7.32-7.43); VBG pO2 138 mmHg
[2021-02-04 05:29] LABS: Venous Blood Gas Refer to POC result
[2021-02-04 05:34] LABS: MANUAL DIFF FLAG NO
[2021-02-04 05:38] LABS: Basophils Percent Auto 0.1 % (0-2); Eosinophils Absolute Auto 0.2 X10*3/uL (0.0-0.4); Eosinophils Percent Auto 1.6 % (0-4); Hematocrit 28.8 % (37-47); Hemoglobin 8.2 g/dl (12.0-16.0); Imm Gran Pct Auto 0.8 % (0.0-0.4); Lymphocytes Absolute Auto 0.6 X10*3/uL (1.2-4.9); Mean Corpuscular HGB Conc 28.5 g/dl (31.0-35.0); Mean Corpuscular Volume 91.4 fL (80-98); Mean Platelet Volume 11.3 fL (9.4-12.3); Monocytes Absolute Auto 0.9 X10*3/uL (0.1-1.2); Monocytes Percent Auto 7.8 % (2-11); Neutrophils Absolute Auto 10.1 X10*3/uL (2.0-8.3); Neutrophils Percent Auto 84.7 % (45-73); Platelet Count 253 X10*3/uL (160-400); Red Blood Count 3.15 X10*6/uL (4.20-5.50); Red Cell Distribution Width 17.5 % (11.0-16.0); White Blood Count 11.9 X10*3/uL (4.8-10.8)
[2021-02-04 05:52] LABS: Albumin Level 3.3 g/dL (3.5-5.0); Anion Gap 15 (12-20); Blood Urea Nitrogen 15 mg/dL (9-16); Calcium 8.2 mg/dL (8.4-10.2); Carbon Dioxide 27 mmol/L (22-29); Chloride 104 mmol/L (96-108); Creatinine Clr Calc Pharmacy 63.4; Estimated Glomerular Filt Rate > 60; Glucose Random 84 mg/dL (60-115); Phosphorus 3.3 mg/dL (2.7-4.5); Potassium 3.6 mmol/L (3.3-5.1); Sodium 142 mmol/L (135-145)
[2021-02-04] MEDS: Albuterol/Iprat 2.5/0.5MG 3 ML AMPUL.NEB INHALE ×4 (07:34→20:03)
[2021-02-04] MEDS: Lactulose 20 GM/30 ML SOLUTION 30 GM PO ×2 (07:40→20:59)
[2021-02-04] MEDS: Chlorhexidine Gluc Oral Rinse 15 ML MOUTHWASH BUCCAL ×3 (07:40→20:59)
[2021-02-04] MEDS: Apixaban 5 MG TABLET PO ×2 (07:40→20:59)
[2021-02-04] MEDS: acetaZOLAMIDE sodium 500 MG VIAL IVPUSH ×2 (07:40→20:59)
[2021-02-04] MEDS: Nystatin Powder 15 GM BOTTLE 1 APPL TOPICAL ×2 (07:41→20:59)
[2021-02-04] MEDS: Bumetanide 1 MG/4 ML VIAL IVPUSH (10:28)
--- NOTE | 2021-02-04 11:59 | PM.CCPN ---
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 On ER evaluation patient was noted to be in acute hypoxic and hypercapnic respiratory failure, likely secondary to underlying congestive heart failure and obesity hyperventilation syndrome. She was started on diuresis and BiPAP and admitted to intensive care unit. Patient's hypercapnia progressed despite BiPAP support in she required emergent intubation and ventilatory support. No events overnight. Starting to tolerate pressure support trials, though on 15 of pressure support. Critical Care Time (minutes): 45 Physical Exam Vital Signs: Vital Signs: Last Vital Signs Temp 98.8 F 02/04/21 11:00 Pulse 74 02/04/21 11:38 Resp 16 02/04/21 11:00 BP 133/58 L 02/04/21 11:00 Pulse Ox 92 02/04/21 11:00 Body Mass Index 43.5 Const: General: no acute distress and other (Sedated on the vent) Eyes: Sclerae: sclerae normal EOM: EOMs intact bilaterally Neck: Neck: Yes no lymphadenopathy, Yes trachea midline and Yes supple Resp: Auscultation: clear to auscultation bilaterally Cardio: Rate: regular rate Rhythm: regular rhythm Heart sounds: no gallops, no murmurs and no rubs GI: Palpation (GI): Soft to palpation and Other GI palpation findings present ( Nontender) Auscultation: normal bowel sounds Extrem: General: No clubbing, No cyanosis and Yes pedal edema (1+ bilateral) Objective Data Labs CBC & Chem 7: 02/04/21 05:16 02/04/21 05:16 Labs: Laboratory Results - last 24 hr 02/03/21 02/04/21 02/04/21 17:54 05:16 05:16 WBC 11.9 H RBC 3.15 L Hgb 8.2 L Hct 28.8 L MCV 91.4 MCH 26.0 L MCHC 28.5 L RDW 17.5 H Plt Count 253 MPV 11.3 Immature Gran % (Auto) 0.8 H Neut % (Auto) 84.7 H Lymph % (Auto) 5.0 L [place] % (Auto) 7.8 Eos % (Auto) 1.6 Baso % (Auto) 0.1 Lymph # (Auto) 0.6 L [place] # (Auto) 0.9 Eos # (Auto) 0.2 Baso # (Auto) 0.0 Abs Immat Gran (auto) 0.10 H Absolute Neuts (auto) 10.1 H Absolute Nucleated RBC 0.000 Nucleated RBC % (auto) 0.0 VBG pH VBG pCO2 VBG pO2 VBG HCO3 VBG O2 Saturation VBG Base Excess Sodium 142 142 Potassium 4.1 D 3.6 Chloride 104 104 Carbon Dioxide 30 H 27 Anion Gap 12 15 BUN 16 15 Creatinine 0.91 0.85 Estim Creat Clear Calc 59.2 63.4 Estimated GFR > 60 > 60 Random Glucose 90 84 Calcium 8.1 L 8.2 L Phosphorus 3.3 Magnesium 2.0 Albumin 3.3 L 02/04/21 05:23 WBC RBC Hgb Hct MCV MCH MCHC RDW Plt Count MPV Immature Gran % (Auto) Neut % (Auto) Lymph % (Auto) [place] % (Auto) Eos % (Auto) Baso % (Auto) Lymph # (Auto) [place] # (Auto) Eos # (Auto) Baso # (Auto) Abs Immat Gran (auto) Absolute Neuts (auto) Absolute Nucleated RBC Nucleated RBC % (auto) VBG pH 7.35 VBG pCO2 60 VBG pO2 138 VBG HCO3 33 H VBG O2 Saturation 99.0 VBG Base Excess 6.9 Sodium Potassium Chloride Carbon Dioxide Anion Gap BUN Creatinine Estim Creat Clear Calc Estimated GFR Random Glucose Calcium Phosphorus Magnesium Albumin Microbiology Microbiology Results: Microbiology 01/30/21 11:15 Blood - Venous Blood Culture - Preliminary No growth after 48 hours. 01/30/21 10:30 Blood - Venous Blood Culture - Preliminary No growth after 48 hours. Quality Stroke Does the patient have a stroke diagnosis?: No VTE Prior VTE?: No VTE Risk Level:: Medical - moderate - high VTE Device Contraindication: Treatment Not Indicated VTE Drug Contraindication: N/A - Med Ordered Progress Note: A&P Assessment and plan (1) Afib: Status: Acute Assessment and Plan: Assessment: 75-year-old lady with underlying morbid obesity and bilateral diaphragmatic paralysis admitted with acute on chronic hypoxic and hypercapnic respiratory failure requiring ventilatory support. Plan: Neuro: Initial visual hallucination likely secondary to CO2 narcosis. Cardiac: Mild exacerbation of underlying chronic congestive heart failure, improving with diuresis. New onset AFib, continues on amiodarone for rate control, and on anticoagulation. Pulmonary: Acute on chronic hypoxic and hypercapnic respiratory failure, appears to be secondary to combination of underlying diaphragmatic paralysis, diastolic congestive heart failure, and worsening obesity hypoventilation syndrome. Now requiring ventilatory support. Today patient has tolerating pressure support of 15. May still require tracheostomy placement. Continue to titrate of ventilatory support as tolerated. Discussion with family regarding goals of care ongoing. Renal: No acute issues. Endo: No acute issues. GI: No acute issues. ID: No acute issues Heme/Onc: No acute issues. Psych: No acute issues. Miscellaneous: No acute issues. Prophylaxis: Heparin, ppi Diet: Tube feeds Critical care time spent: 45 minutes (2) Diaphragmatic paralysis: Status: Acute (3) Metabolic encephalopathy: Status: Acute (4) Obesity hypoventilation syndrome: Status: Acute (5) Acute on chronic respiratory failure with hypoxia and hypercapnia: Status: Acute (6) Congestive heart failure: Status: Acute
[2021-02-04] MEDS: fentaNYL citrate/NS 1,000 MCG/100 ML PLAST..BAG 5 MCG IVCONT (13:00)
[2021-02-04] MEDS: propofoL 1,000 MG/100 ML VIAL 6.19 MG IVCONT (16:25)
[2021-02-04] MEDS: Amiodarone HCL 900 MG in 0.9 % Sodium Chloride 500 ML 17.27 MG IVCONT (17:40)
[2021-02-04 18:38] LABS: Anion Gap 14 (12-20); Blood Urea Nitrogen 17 mg/dL (9-16); Carbon Dioxide 29 mmol/L (22-29); Chloride 105 mmol/L (96-108); Creatinine Clr Calc Pharmacy 54.1; Estimated Glomerular Filt Rate 55; Glucose Random 95 mg/dL (60-115); Potassium 3.6 mmol/L (3.3-5.1); Sodium 144 mmol/L (135-145)
[2021-02-05] VITALS (22 sets, daily range): BP systolic 83–125; BP diastolic 38–67; PULSE 75–171; RESP 12–19; TEMP 37.1–37.7; O2SAT 84–95; BMI 46.9
[2021-02-05] MEDS: propofoL 1,000 MG/100 ML VIAL 9.28 MG IVCONT ×2 (04:05→12:35)
[2021-02-05 05:35] LABS: VBG Base Excess 3.6 mmol/L; VBG HCO3 30 mmol/L (22-26); VBG pCO2 52 mmHg; VBG pH 7.35 (7.32-7.43); VBG pO2 48 mmHg
[2021-02-05 05:40] LABS: Venous Blood Gas Refer to POC result
[2021-02-05 05:49] LABS: Basophils Percent Auto 0.2 % (0-2); Hemoglobin 8.6 g/dl (12.0-16.0); MANUAL DIFF FLAG SCAN; PLT CLUMP 1; Red Cell Distribution Width 17.2 % (11.0-16.0); SCAN SMEAR FLAG 1
[2021-02-05 05:50] LABS: Eosinophils Absolute Auto 0.1 X10*3/uL (0.0-0.4); Eosinophils Percent Auto 0.5 % (0-4); Hematocrit 31.2 % (37-47); Imm Gran Pct Auto 1.6 % (0.0-0.4); Lymphocytes Absolute Auto 0.5 X10*3/uL (1.2-4.9); Mean Corpuscular HGB Conc 27.6 g/dl (31.0-35.0); Mean Corpuscular Hemoglobin 25.2 pg (27.0-33.0); Mean Corpuscular Volume 91.5 fL (80-98); Mean Platelet Volume 11.2 fL (9.4-12.3); Monocytes Absolute Auto 1.2 X10*3/uL (0.1-1.2); Monocytes Percent Auto 9.3 % (2-11); NRBC Pct Auto 0.2 /100WBC (0.0-0.2); Neutrophils Absolute Auto 10.9 X10*3/uL (2.0-8.3); Neutrophils Percent Auto 84.4 % (45-73); Platelet Count 251 X10*3/uL (160-400); Red Blood Count 3.41 X10*6/uL (4.20-5.50); White Blood Count 12.9 X10*3/uL (4.8-10.8)
[2021-02-05 06:06] LABS: Alanine Aminotransferase 16 U/L (0-31); Albumin Level 3.3 g/dL (3.5-5.0); Alkaline Phosphatase 94 U/L (39-117); Anion Gap 16 (12-20); Aspartate Amino Transferase 41 U/L (5-31); Bilirubin Total 0.3 mg/dL (0.0-1.0); Blood Urea Nitrogen 18 mg/dL (9-16); Calcium 8.2 mg/dL (8.4-10.2); Carbon Dioxide 28 mmol/L (22-29); Chloride 105 mmol/L (96-108); Creatinine Clr Calc Pharmacy 47.9; Estimated Glomerular Filt Rate 45; Glucose Random 89 mg/dL (60-115); Magnesium 2.1 mg/dL (1.6-2.6); Phosphorus 4.2 mg/dL (2.7-4.5); Potassium 3.5 mmol/L (3.3-5.1); Sodium 145 mmol/L (135-145); Total Protein 5.6 g/dL (6.5-8.0)
[2021-02-05] MEDS: Metoprolol Tartrate 5 MG/5 ML VIAL IVPUSH (06:06)
[2021-02-05 06:13] LABS: SLIDE REVIEW VERIFIED
[2021-02-05] MEDS: acetaZOLAMIDE sodium 500 MG VIAL IVPUSH (08:34)
[2021-02-05] MEDS: Chlorhexidine Gluc Oral Rinse 15 ML MOUTHWASH BUCCAL (08:35)
[2021-02-05] MEDS: Lactulose 20 GM/30 ML SOLUTION 30 GM PO (08:36)
[2021-02-05] MEDS: Apixaban 5 MG TABLET PO (08:36)
--- NOTE | 2021-02-05 10:26 | MHC.CLN ---
F/U TF ON HOLD R/T HIGH RESIDUALS NSG REPORTED 600ML OF BILIOUS RESIDUAL TF OFF SINCE 02/04 PT WITH INCREASED NUTRITION NEEDS R/T PRESSURE INJURIES DISCUSSED AT ROUNDS WITH KELLY AND MD NSG GAVE PT LACTULOSE AND MD TO GIVE REGLAN; NO REPORTED BM PER NSG PLAN TO RE-START PROMOTE AT 10ML/HR PT'S GOAL IS PROMOTE AT MAX GOAL RATE 40ML/HR WITH 30ML OF PROSOURCE X1 PER DAY TO PROVIDE 1020KCALS (1347KCALS WITH SEDATION; 30KCALS/KG) BASED ON IBW, 75G PROTEIN (1.7G/KG), 805CC FREE WATER FROM FORMULA MONITOR TOLERANCE, RESIDUALS AND LYTES
[2021-02-05] MEDS: Nystatin Powder 15 GM BOTTLE 1 APPL TOPICAL (11:00)
[2021-02-05] MEDS: Metoclopramide HCl 10 MG/2 ML VIAL IVPUSH (11:54)
[2021-02-05] MEDS: Potassium Chloride/H20 10 MEQ/100 ML PIGGYBACK 100 MEQ IV (11:54)
--- NOTE | 2021-02-05 12:07 | PM.CCPN ---
Subjective Subjective Date of Service: 02/05/21 Interval History: Mrs. Calderon was admitted to the ICU on January 30 with acute respiratory failure. The patient is a 75 yo woman with history of morbid obesity, bilateral diaphragmatic paralysis after a cervical fusion, resulting in chronic hypoxemic and hypercapnic respiratory failure, on home oxygen, obesity-hypoventilation syndrome, diastolic congestive heart failure She presented to the ED on January 30 with history of progressive dyspnea and new onset visual hallucinations, undoubtedly secondary to CO2 retention.? In the ED, the patient was in acute hypoxemic and hypercapnic respiratory failure, likely secondary to underlying congestive heart failure and obesity hyperventilation syndrome.? She had 4+ weeping bilateral lower extremity edema. ?She was started on diuresis and BiPAP and admitted to intensive care unit.? Her hypercapnia progressed despite BiPAP support and she required emergent intubation and ventilatory support. Echocardiogram on January 31 was notable for normal left ventricular cavity size and systolic function, with elevated filling pressures.? There was severe LVH.? There was normal right ventricular cavity size and systolic function.? Inferior vena cava was normal w > 50% insp collapse. The patient was diuresed, but responded poorly.? She still has marked LE pitting edema and anasarca.? Furthermore, she developed AFib, which has not been able to be well controlled even with Amiodarone.? The Afib gets worse when she?s tried on pressure support trials. On exam today, the patient is mildly sedated with just propofol at 15 mcg.? Eyes are open but she is not interactive.? HR now is 150, Afib; earlier was in SR at 75/min.? BP is 110/62.? The ventilator is set on PRVC f12/400/40%/+5, with I:E 1:3.8.? RR is 13, Ve 7L, PIP 30cm, Ppl 29cm, ETCO2 39, Sat 90%.? This morning central venous gas showed 7.35/52/+3.? She has been on Diamox.? Pupils equal round, 3-4 mm, with no response to confrontation. ?No JVD with the head of the bed at 30 degrees.? Auscultation of the chest shows a mild expiratory wheeze.? Heart tones are very soft; I heard no murmur or gallops.? Abdomen is obese and benign.? She has dense 3-4 +pitting edema. LABORATORY DATA:? As below.? Notably, sodium is 145, BUN/creatinine up slightly to 18/1.1, phosphorus 4.2. IMPRESSION: 1. Morbid obesity, with obesity hypoventilation syndrome. 2. Bilateral diaphragmatic paralysis. 3. Chronic hypoxemic and hypercarbic respiratory failure, secondary to above. 4. Severe diastolic heart failure. 5. Acute hypoxemic and hypercarbic respiratory failure, secondary to above factors. 6. Undoubtedly has right heart failure, which the echo, in this case, suggests is secondary to left heart failure. 7. New onset Afib.? Continue amiodarone and anticoagulation, replete potassium. 8. New mild TIM. ?2? attempted diuresis in the face of right heart failure.? Not unexpected. 9. Neuro:? Likely ICU delirium (i.e metabolic encephalopathy). Prognosis is very poor, even with a tracheostomy, that the patient would most certainly require.? She would go to a detention, and likely 1 year mortality would be at least 50%. I spoke with the granddaughter Niraj ([phone]), with the patient?s listening in.? She indicated that Pastora has been suffering 4 year, she hated the oxygen, and she would never want a tracheostomy.? As much as everyone in the family wanted Pastora to live, they were committed to doing what was right for her, which they felt was to let her go now.? I am in agreement.? I spoke at length with Dr. Gerber and he is also in agreement. The family was in over this weekend.? They do not want to come back.? We will proceed with extubation and making sure that she is comfortable, and will follow-up with the family. ADDENDUM: The patient was switched over to pressure support, breathing with a respiratory rate in the 20s, on a fentanyl infusion. She was extubated at about 13:30. She appears comfortable. She remains unresponsive. ADDENDUM: The patient comfortably at 13:47 with the nurses at the bedside. The family will be notified. Critical Care Time (including full chart rev and hosp course summary): 110+ min. Critical Care Time (minutes): 110 Physical Exam Vital Signs: Vital Signs: Last Vital Signs Temp 99.3 F 02/05/21 12:00 Pulse 157 H 02/05/21 12:00 Resp 15 02/05/21 12:00 BP 110/62 02/05/21 12:00 Pulse Ox 90 L 02/05/21 12:00 Body Mass Index 46.9 Objective Data Labs CBC & Chem 7: 02/05/21 05:26 02/05/21 05:27 Labs: Laboratory Results - last 24 hr 02/04/21 02/05/21 02/05/21 18:17 05:26 05:27 WBC 12.9 H RBC 3.41 L Hgb 8.6 L Hct 31.2 L MCV 91.5 MCH 25.2 L MCHC 27.6 L RDW 17.2 H Plt Count 251 MPV 11.2 Immature Gran % (Auto) 1.6 H Neut % (Auto) 84.4 H Lymph % (Auto) 4.0 L [place] % (Auto) 9.3 Eos % (Auto) 0.5 Baso % (Auto) 0.2 Lymph # (Auto) 0.5 L [place] # (Auto) 1.2 Eos # (Auto) 0.1 Baso # (Auto) 0.0 Abs Immat Gran (auto) 0.20 H Absolute Neuts (auto) 10.9 H Absolute Nucleated RBC 0.020 H Nucleated RBC % (auto) 0.2 Smear Tech's Comments VERIFIED VBG pH VBG pCO2 VBG pO2 VBG HCO3 VBG O2 Saturation VBG Base Excess Sodium 144 145 Potassium 3.6 3.5 Chloride 105 105 Carbon Dioxide 29 28 Anion Gap 14 16 BUN 17 H 18 H Creatinine 0.99 1.17 Estim Creat Clear Calc 54.1 47.9 Estimated GFR 55 45 Random Glucose 95 89 Calcium 8.0 L 8.2 L Phosphorus 4.2 Magnesium 2.1 Total Bilirubin 0.3 AST 41 H D ALT 16 Alkaline Phosphatase 94 Total Protein 5.6 L Albumin 3.3 L 02/05/21 05:30 WBC RBC Hgb Hct MCV MCH MCHC RDW Plt Count MPV Immature Gran % (Auto) Neut % (Auto) Lymph % (Auto) [place] % (Auto) Eos % (Auto) Baso % (Auto) Lymph # (Auto) [place] # (Auto) Eos # (Auto) Baso # (Auto) Abs Immat Gran (auto) Absolute Neuts (auto) Absolute Nucleated RBC Nucleated RBC % (auto) Smear Tech's Comments VBG pH 7.35 VBG pCO2 52 VBG pO2 48 VBG HCO3 30 H VBG O2 Saturation 79.0 VBG Base Excess 3.6 Sodium Potassium Chloride Carbon Dioxide Anion Gap BUN Creatinine Estim Creat Clear Calc Estimated GFR Random Glucose Calcium Phosphorus Magnesium Total Bilirubin AST ALT Alkaline Phosphatase Total Protein Albumin Microbiology Microbiology Results: Microbiology 01/30/21 11:15 Blood - Venous Blood Culture - Final No growth after 5 days. 01/30/21 10:30 Blood - Venous Blood Culture - Final No growth after 5 days. Quality Stroke Does the patient have a stroke diagnosis?: No VTE Prior VTE?: No VTE Risk Level:: Medical - moderate - high VTE Device Contraindication: Treatment Not Indicated VTE Drug Contraindication: N/A - Med Ordered Critical Care Time Critical Care Time (minutes): 120
[2021-02-05] MEDS: fentaNYL citrate/NS 1,000 MCG/100 ML PLAST..BAG 2.5 MCG IVCONT (12:54)
--- NOTE | 2021-02-05 14:33 | PC.NURSE ---
Dr Miller called family with progress report. Per Dr Miller family made comfort care R/T choice of trach and peg and quality of life. Propofol stopped, and restraints removed. RT at at bedside. Fentanyl gtt started at 25 mcgs and titrated for comfort. 1330 pt extubated and pt peacefully at 1345. Organ donation called.
--- NOTE | 2021-02-06 14:12 | PM.DDS ---
Discharge Sum: Prov Provider Primary care physician: Aundrea Portillo NP Pronouncing clinician: Lex Miller Discharge Sum: Diag Contributing Factors (1) Afib: (2) Diaphragmatic paralysis: (3) Metabolic encephalopathy: (4) Obesity hypoventilation syndrome: (5) Acute on chronic respiratory failure with hypoxia and hypercapnia: (6) Congestive heart failure: Discharge Sum: Summary Date and Time Date of admission: 01/30/21 12:38 Date of : 02/05/21 Time of : 13:47 Summary Details: ? NOTE DISCHARGE DIAGNOSES: 1. Morbid obesity. 2. Obesity hypoventilation syndrome. 3. Bilateral diaphragmatic paralysis. 4. Chronic hypoxemic and hypercarbic respiratory failure. 5. Severe diastolic heart failure. 6. Acute hypoxemic and hypercarbic respiratory failure. 7. Right heart failure, secondary to left heart failure. 8. New onset Afib 9. New TIM. 10. Metabolic encephalopathy. Mrs Calderon was a 75 yo woman with history of morbid obesity; bilateral diaphragmatic paralysis after a cervical fusion, resulting in chronic hypoxemic and hypercapnic respiratory failure, on home oxygen; obesity-hypoventilation syndrome; and diastolic congestive heart failure She presented to the ED on January 30 with history of progressive dyspnea and new onset visual hallucinations, undoubtedly secondary to CO2 retention. ?In the ED, the patient was in acute hypoxemic and hypercapnic respiratory failure, likely secondary to underlying congestive heart failure and obesity hyperventilation syndrome. ?She had 4+ weeping bilateral lower extremity edema. ?She was started on diuresis and BiPAP and admitted to intensive care unit. ?Her hypercapnia progressed despite BiPAP support and she required emergent intubation and ventilatory support. Echocardiogram on January 31 was notable for normal left ventricular cavity size and systolic function, with elevated filling pressures. ?There was severe LVH. ?There was normal right ventricular cavity size and systolic function. ?Inferior vena cava was normal w > 50% insp collapse. The patient was diuresed, but responded poorly. ?She still has marked LE pitting edema and anasarca. ?Furthermore, she developed AFib, which had not been able to be well controlled even with Amiodarone. ?The Afib got worse when she was tried on pressure support trials. It was clear that her prognosis was very poor, even with a tracheostomy that the patient would most certainly require. ?She would go to a senior living, where likely one year mortality would be at least 50%. I spoke with the granddaughter Niraj ([phone]), with the patient?s listening in. ?She indicated that Pastora has been suffering for a year, she hated the oxygen, and she would never want a tracheostomy. ?As much as everyone in the family wanted Pastora to live, they were committed to doing what was right for her, which they felt was to let her go.? Dr. Gerber and I were in agreement. The patient was switched over to pressure support, breathing with a respiratory rate in the 20s, on a fentanyl infusion. ?She was extubated without incident, breathing reasonably comfortably.? She did a short time later. Additional Data Attending physician: Lex Miller MD
[2021-02-23 08:51] LABS: ABG pH 7.31 (7.35-7.45); ABG pO2 72 mmHg (83-108)
== END 2021-02-05 13:45 | disposition expired | DRG 291 ==
LOC: HO.ED 12:44 → HO.EDOVER 13:15 → HO.ICU 14:50
PROVIDERS: Admitting Provider Internal Medicine Pulmonary Disease; Emergency Provider Internal Medicine; PCP Registered Nurse; Visit Provider Anesthesiology
DX: I11.0 Hypertensive heart disease with heart failure (principal); J96.21 Acute and chronic respiratory failure with hypoxia; L89.893 Pressure ulcer of other site, stage 3; G93.41 Metabolic encephalopathy; J96.22 Acute and chronic respiratory failure with hypercapnia; E87.4 Mixed disorder of acid-base balance; E66.2 Morbid (severe) obesity with alveolar hypoventilation; Z68.42 Body mass index [BMI] 45.0-49.9, adult; I50.43 Acute on chronic combined systolic (congestive) and diastolic (congestive) heart failure; Z20.822 Contact with and (suspected) exposure to COVID-19; J98.6 Disorders of diaphragm; Z87.891 Personal history of nicotine dependence; Z88.2 Allergy status to sulfonamides
CPT/HCPCS: 36415; 36600; 71045; 80048; 80053; 80076; 81001; 82040; 82803; 83605; 83735; 83880; 84100; 84484; 85025; 85610; 85730; 87040; 87635; 93005; 93306; 94002; 94003; 94640; 94660; 94799; 99285; J0282; J0610; J1940; J2250; J2765; J3010; P9047